=== PATIENT | male | born 1950 | race Caucasian/White ===

== ENCOUNTER 2020-02-19 12:23 | Outpatient (CLI) | payer MEDICARE, SELFPAY ==
--- NOTE | ~2020-02-19 | CT_ITS ---
EXAMINATION: CT abdomen pelvis wo con DATE: 02/19/2020 12:42 INDICATION: 3 weeks of mid abdominal pain, nausea and vomiting TECHNIQUE: Computed tomography (CT) of the abdomen and pelvis was performed without intravenous contr ast. Automated exposure control and iterative reconstruction technique were employed. The dose-length product was 565.17 mGy-cm. COMPARISON: None FINDINGS: Mild atelectasis/scarring at the lingula and right middle lobe. Heart size is normal. Postoperative c hange of prior median sternotomy and likely coronary artery bypass grafting. No pericardial or pleura l effusion. Small calcified gallstone at the neck of the normal-appearing gallbladder with no wall th ickening, dilation or pericholecystic inflammatory change to suggest acute cholecystitis. There is a 4 mm calcification in the region of the head of the pancreas which could represent a stone at the dis alex common bile duct or dystrophic pancreatic callus calcification related to chronic pancreatitis. L iver is normal. No intra or extrahepatic biliary ductal dilation. The spleen, pancreas and bilateral adrenal glands are normal. Bilateral renal cysts the largest on the left measuring 2.2 cm. There also a few small bilateral nonobstructing renal stones, the largest on the left measuring 2 mm the remain jarret 1 mm or smaller. No hydronephrosis in either kidney. There is moderate sigmoid diverticulosis wit hout adjacent inflammatory change to suggest diverticulitis. Small bowel and appendix are normal. Antonio dder is normal. Prostatic calcifications. No free intraperitoneal gas or fluid. No pathologically enl arged abdominal or pelvic lymphadenopathy. Moderate-sized fat-containing right inguinal hernia. Small fat-containing umbilical hernia. IMPRESSION: 1. Cholelithiasis with possible stone in the distal common bile duct but without findings of acute ch olecystitis or intra or extra hepatic biliary ductal dilation. Correlate with liver function tests an d could consider MRCP for further evaluation as clinically indicated. 2. Bilateral nonobstructing nephrolithiasis. 3. Diverticulosis. 4. Small fat-containing umbilical hernia and moderate-sized fat-containing right inguinal hernia. Reviewed, dictated and finalized at location H. ING MASTER IMPRESSION: 1. Cholelithiasis with possible stone in the distal common bile duct but withou t findings of acute cholecystitis or intra or extra hepatic biliary ductal dila tion. Correlate with liver function tests and could consider MRCP for further e valuation as clinically indicated. 2. Bilateral nonobstructing nephrolithiasis. 3. Diverticulosis. 4. Small fat-containing umbilical hernia and moderate-sized fat-containing righ t inguinal hernia.
== END 2020-02-19 12:24 | disposition home or self-care (01) ==
LOC: ANHIMG 12:30
PROVIDERS: PCP Internal Medicine; Visit Provider Nurse Practitioner
DX: K80.80 Other cholelithiasis without obstruction (principal); N28.1 Cyst of kidney, acquired; N20.0 Calculus of kidney; K57.30 Diverticulosis of large intestine without perforation or abscess without bleeding; K40.90 Unilateral inguinal hernia, without obstruction or gangrene, not specified as recurrent; K42.9 Umbilical hernia without obstruction or gangrene; K80.20 Calculus of gallbladder without cholecystitis without obstruction
CPT/HCPCS: 74176

== ENCOUNTER 2020-02-28 08:14 | Emergency (ER) | payer MEDICARE, SELFPAY ==
--- NOTE | ~2020-02-28 | US_ITS ---
US abdomen limited INDICATION: Limited transaminase levels. PROCEDURE: Realtime right upper abdominal ultrasound. COMPARISON: CT dated 02/19/2020 FINDINGS: There is a small echogenic focus at the pancreatic head without definite posterior shadowin g. Distal common duct stone cannot be excluded. Liver echotexture is normal without focal mass or in trahepatic biliary dilatation. There is normal directional flow in the portal vein. There is an echogenic focus in the neck of the gallbladder, suspicious for cholelithiasis. Mild gallb ladder wall thickening measuring 3 mm. Common bile duct measures 11 mm. No sonographic Fernandez's sig n. There is a 2.2 cm right renal cyst. IMPRESSION: 1: Echogenic focus at the pancreatic head without definite shadowing. Consider distal common duct sto ne. Recommend correlation with MRCP examination as clinically indicated. 2: Probable cholelithiasis. There is gallbladder wall thickening with biliary dilatation. Findings s uspicious for cholecystitis. Reviewed, dictated and finalized at location B. R FORENSIC SPECIALIST IMPRESSION: 1: Echogenic focus at the pancreatic head without definite shadowing. Consider distal common duct stone. Recommend correlation with MRCP examination as clinic ally indicated. 2: Probable cholelithiasis. There is gallbladder wall thickening with biliary dilatation. Findings suspicious for cholecystitis.
[2020-02-28 08:30] VITALS: BP 130/68; PULSE 91; RESP 20; TEMP 36.9; O2SAT 95
--- NOTE | 2020-02-28 08:35 | ED.BACK ---
HPI - Back Pain/Injury General Chief Complaint: Urogenital-Male Stated Complaint: back and abd pain Time Seen by Provider: 02/28/20 08:35 Source: patient and family Limitations: no limitations Related Data Home Medications Medication Instructions Recorded Confirmed aspirin 81 mg tablet,delayed 81 mg PO DAILY 01/13/20 release atorvastatin 80 mg tablet 80 mg PO DAILY 01/13/20 docusate sodium 100 mg capsule 100 mg PO BID 01/13/20 ezetimibe 10 mg tablet 10 mg PO DAILY 01/13/20 metoprolol tartrate 25 mg tablet 25 mg PO BID tablet 01/13/20 multivitamin 1 tablet PO DAILY 01/13/20 omega-3 fatty acids 1,000 mg 1,000 mg PO DAILY 01/13/20 capsule Allergies Allergy/AdvReac Type Severity Reaction Status Date / Time No Known Drug Allergies Allergy Mild unknown Verified 02/03/20 09:58 NKFA Allergy Mild unknown Uncoded 02/03/20 09:58 [facility] Past Medical History Medical History (Updated 02/17/20 @ 14:02 by Nita Macias NP) Hyperlipidemia Hypertension Surgical History Surgical History (Updated 01/13/20 @ 09:44 by Clementina Avila CMA) H/O hernia repair H/O neck surgery S/P triple vessel bypass 06/2014 Family History Family History (Updated 01/13/20 @ 09:52 by Clementina Avila CMA) Mother Acute myocardial infarction Cancer Alzheimer disease Father Diabetes mellitus Skin cancer Social History Social History (Updated 02/03/20 @ 09:59 by Bronwyn Bui CMA) Smoking status: Never smoker Second hand tobacco smoke exposure: No Alcohol intake: never Substance use: never Discharge Plan Discharge Prescriptions: No Action metoprolol tartrate 25 mg tablet 25 mg PO BID RF: 0 atorvastatin 80 mg tablet 80 mg PO DAILY RF: 0 docusate sodium 100 mg capsule 100 mg PO BID RF: 0 aspirin [Adult Low Dose Aspirin] 81 mg tablet,delayed release (DR/EC) 81 mg PO DAILY RF: 0 ezetimibe [Zetia] 10 mg tablet 10 mg PO DAILY RF: 0 multivitamin Tablet 1 tablet PO DAILY RF: 0 omega-3 fatty acids [Fish Oil Concentrate] 1,000 mg capsule 1,000 mg PO DAILY RF: 0 fluticasone propionate [Flonase Allergy Relief] 50 mcg/actuation spray,suspension 1 spray intranasal BID Qty: 15.8 RF: 3
--- NOTE | 2020-02-28 08:39 | ECG_ITS ---
Measurements Intervals [place] Rate: 81 P: 70 PA: 151 QRS: 4 QRSD: 126 T: 106 QT: 385 QTc: 447 Interpretive Statements SINUS RHYTHM LEFT BUNDLE BRANCH BLOCK EARLY PRECORDIAL R/S TRANSITION INFERIOR INFARCT, AGE INDETERMINATE BASELINE WANDER- V1 ABNORMAL ECG Electronically Signed On 02-28-2020 9:11:56 [employer]HAUSTER by Prince Andrews D.O.
[2020-02-28] MEDS: ONDANSETRON INJ 4 MG/2 ML VIAL IV PUSH (08:45)
[2020-02-28] MEDS: SODIUM CHLORIDE 0.9% IV 1,000 ML 999 ML IV CONT (08:45)
[2020-02-28] MEDS: HYDROmorphone HCL INJ (*CRX) 2 MG/ML VIAL 0.5 MG IV PUSH ×3 (08:50→12:40)
[2020-02-28 09:08] LABS: Basophils Absolute Auto 0.01 K/mm3 (0.00-0.10); Basophils Percent Auto 0.1 % (0.0-1.0); Hematocrit 42.4 % (37.0-46.0); Hemoglobin 14.1 g/dL (12.4-15.3); Immature Granulocyte Absolute 0.03 K/mm3 (0.00-0.00); Immature Granulocyte Percent A 0.3 % (0.0-0.0); Lymphocytes Absolute Auto 0.12 K/mm3 (1.10-4.50); Lymphocytes Percent Auto 1.4 % (18.0-42.0); Mean Corpuscular HGB Conc 33.3 g/dL (32.0-36.0); Mean Corpuscular Hemoglobin 29.9 pg (27.0-31.0); Mean Corpuscular Volume 89.8 fL (78.0-102.0); Mean Platelet Volume 10.1 fl (8.7-11.0); Monocytes Absolute Auto 0.09 K/mm3 (0.10-0.90); Neutrophils Absolute Auto 8.6 K/mm3 (1.7-7.2); Neutrophils Percent Auto 97.2 % (50.0-70.0); Platelet Count Result 160 K/mm3 (150-420); Red Blood Count 4.72 M/mm3 (4.70-6.10); Red Cell Distribution Width 13.2 % (11.6-14.4); White Blood Count 8.8 K/mm3 (4.8-10.8)
[2020-02-28 09:12] LABS: Add Urine Microscopic? YES; Appearance Urine Clear (Clear); Bilirubin Urine 3+ (Negative); Blood Urine Negative (Negative); Glucose Urine UA Negative (Negative); Ketones Urine 2+ (Negative); Leukocyte Esterase Ur Negative LEU/UL (Negative); Nitrate Urine Positive (Negative); Protein Urine 1+ (Negative); Specific Grav Ur >= 1.030 (1.010-1.020)
[2020-02-28 09:19] LABS: RBC Urine 0-2 /hpf (0-2); WBC Urine 0-3 /hpf (0-3)
[2020-02-28 09:20] LABS: Bacteria Urine 1+ /hpf; Mucus Urine Moderate /lpf
[2020-02-28 09:21] LABS: Color Urine Dark Orange (Yellow)
[2020-02-28 09:22] LABS: INR 1.3; Partial Thromboplastin Time 27.8 SEC (23.90-30.70); Prothrombin Time 14.5 Seconds (9.50-12.10)
[2020-02-28 09:25] LABS: Lactic Acid Reflex 4.8 mmol/L (0.4-2.0)
[2020-02-28 09:29] LABS: Alanine Aminotransferase 534 U/L (16-63); Albumin Level 3.5 g/dL (3.4-5.0); Alkaline Phosphatase 216 U/L (46-116); Anion Gap 15 mmol/L (8-16); Aspartate Amino Transferase 254 U/L (15-37); Bilirubin,Total 6.4 mg/dL (0.00-1.00); Blood Urea Nitrogen 24 mg/dL (7-18); Calcium 9.3 mg/dL (8.5-10.1); Carbon Dioxide 22 mmol/L (21-32); Chloride 103 mmol/L (98-108); Estimated CRCL calculation 48 ml/min; Estimated Glomerular Filt Rate 58; Glucose 153 mg/dL (70-99); Lipase 186 U/L (73-393); Osmolality Calculated 297 mOsm/kg (285-295); Potassium 3.4 mmol/L (3.5-5.1); Sodium 140 mmol/L (136-145); Total Protein 7.6 g/dL (6.4-8.2); Troponin I < 0.02 ng/mL (0.00-0.056)
[2020-02-28 09:30] LABS: Creatine Kinase 47 U/L (39-308); Lactate Dehydrogenase 183 U/L (85-227)
--- NOTE | 2020-02-28 10:09 | PC.NURSE ---
pt to xray for ultrasound per wheelchair.
[2020-02-28 10:39] VITALS: BP 135/85; PULSE 89; RESP 16; TEMP 36.7; O2SAT 99
--- NOTE | 2020-02-28 10:42 | PC.NURSE ---
pt returned from radiology. voices much pain relief after send dose of pain med. resting quietly. family at bedside. awaiting rad report.
--- NOTE | 2020-02-28 11:04 | PC.NURSE ---
[facility] contacted for surgery consult
--- NOTE | 2020-02-28 11:11 | ED.ABDPAIN ---
HPI - Abdominal Pain General Chief Complaint: Urogenital-Male Stated Complaint: back and abd pain Time Seen by Provider: 02/28/20 08:35 Source: patient and family Mode of arrival: wheelchair Limitations: no limitations History of Present Illness HPI narrative: 69-year-old man comes in today complaining of epigastric pain that has been present for last 4 weeks. Patient states that he saw his primary care doctor on the where he had a CT scan. He was told that he had kidney stones. Patient states the last 2 days he has had vomiting and worsening of his abdominal pain. He denies fever, diarrhea, blood in his vomitus, blood in stools, or black stools. He denies prior similar episodes. MD elicited complaint: abdominal pain Pertinent past history: none Onset (ago): week(s) (4) Location: epigastric Pain scale (0-10): 10 Quality: sharp Radiation: back Migration to: no migration Exacerbating factors: other ( Deep breath, lying flat) Relieving factors: nothing Associated symptoms: nausea and vomiting Treatments prior to arrival: other ( Tylenol) Related Data Home Medications Medication Instructions Recorded Confirmed aspirin 81 mg tablet,delayed 81 mg PO DAILY 01/13/20 02/28/20 release atorvastatin 80 mg tablet 80 mg PO DAILY 01/13/20 02/28/20 docusate sodium 100 mg capsule 100 mg PO BID 01/13/20 02/28/20 ezetimibe 10 mg tablet 10 mg PO DAILY 01/13/20 02/28/20 metoprolol tartrate 25 mg tablet 25 mg PO BID tablet 01/13/20 02/28/20 multivitamin 1 tablet PO DAILY 01/13/20 02/28/20 omega-3 fatty acids 1,000 mg 1,000 mg PO DAILY 01/13/20 02/28/20 capsule Allergies Allergy/AdvReac Type Severity Reaction Status Date / Time No Known Drug Allergies Allergy Mild unknown Verified 02/03/20 09:58 NKFA Allergy Mild unknown Uncoded 02/03/20 09:58 Review of Systems Constitutional: Constitutional: Denies chills, Denies fever(s) and Denies weakness Eyes: Eyes: Denies change in vision and Denies photophobia ENT: Denies dysphagia, Denies nasal congestion and Denies sore throat Cardiovascular: Cardiovascular: Denies chest pain and Denies radiating jaw, neck or arm pain Respiratory: Respiratory: Denies cough, Denies dyspnea and Denies wheezing Gastrointestinal: Gastrointestinal: Reports abdominal pain, Denies diarrhea, Reports nausea and Reports vomiting Genitourinary: Genitourinary: Reports hematuria, Denies dysuria and Denies urinary frequency Musculoskeletal: Musculoskeletal: Denies arthralgias and Denies joint swelling Integumentary/Breasts: Skin/Breast: Denies pruritus, Denies erythema and Denies rash Neurologic: Reports vertigo, Reports dizziness and Reports syncope Hematologic/Lymphatic: Hematologic/Lymphatic: Denies easy bleeding and Denies easy bruising Allergic/Immunologic: Allergic/Immunologic: Denies lip swelling, Denies throat swelling and Denies tongue swelling PMFSH Past Medical History Medical History (Updated 02/28/20 @ 12:08 by Pratik Grijalva MD) CAD (coronary artery disease) Hyperlipidemia Hypertension Surgical History Surgical History H/O hernia repair H/O neck surgery S/P triple vessel bypass 06/2014 Family History Family History (Updated 01/13/20 @ 09:52 by Clementina Avila [facility]) Mother Acute myocardial infarction Cancer Alzheimer disease Father Diabetes mellitus Skin cancer Social History Social History Smoking status: Never smoker Second hand tobacco smoke exposure: No Alcohol intake: never Substance use: never Exam Const: General: alert; No diaphoretic Nutritional Appearance: well nourished Orientation/consciousness: patient oriented x3 Other: moderate to severe acute distress HENMT: Head: normal to inspection Ears: external ears normal, TM's normal bilaterally and EAC's normal General nose exam: Normal nares present Face and sinus: norm
[2020-02-28 12:06] LABS: Reflex Lactic Acid Yes or No Add Lactic
[2020-02-28 12:46] VITALS: BP 121/75; PULSE 93; RESP 18; O2SAT 94
== END 2020-02-28 13:15 | disposition short-term general hospital (02) ==
PROVIDERS: Emergency Provider Emergency Medicine; PCP Internal Medicine
DX: K81.0 Acute cholecystitis (principal); I25.10 Atherosclerotic heart disease of native coronary artery without angina pectoris; E78.5 Hyperlipidemia, unspecified; I10 Essential (primary) hypertension
CPT/HCPCS: 36415; 76705; 80053; 81001; 82550; 83605; 83615; 83690; 84484; 85025; 85610; 85730; 87086; 87088; 93005; 96361; 96365; 96375; 96376; 99285; J1170; J2405; J2543; J7030

== ENCOUNTER 2020-02-28 15:39 | Inpatient (IN) | payer MEDICARE, SELFPAY ==
--- NOTE | ~2020-02-28 | XR_ITS ---
EXAMINATION: XR cholangiogram surg 1st inj DATE: 03/01/2020 15:44 INDICATION: Cholelithiasis. TECHNIQUE: 145 fluoroscopic images of the right upper quadrant were obtained during intraoperative ch olangiography performed by the surgeon. I was not present in the operating room. Fluoroscopy exposure time was 23 seconds. COMPARISON: CT abdomen and pelvis 02/19/2020 FINDINGS: There is a catheter in the cystic duct. Contrast opacifies the biliary tree and duodenum. T here is no choledocholithiasis. IMPRESSION: 1. No choledocholithiasis. Reviewed, dictated and finalized at location A. [facility] HEALTH TECHNICIAN IMPRESSION: 1. No choledocholithiasis.
--- NOTE | 2020-02-28 13:48 | ADMGEN ---
This patient, Willie Hong, was A DIRECT admit FROM [facility] to [facility]3 MED/SURG OVERFLOW PT. Patient/family oriented to hospital policies and general routines including ID bracelet, bed and alarms, visiting hours, pain management, procedures, bathroom and other care routines, personal items, smoking policy, room service/diet, and visiting hours. Information on how to activate the Rapid Response Team has been discussed. Patient/Family are encouraged to report perceived risks to care and to ask questions if they do not understand what they are told or what they should do.
[2020-02-28 14:00] VITALS: BP 137/83; PULSE 89; RESP 18; TEMP 36.6; O2SAT 93
[2020-02-28 14:15] VITALS: BMI 28.2
--- NOTE | 2020-02-28 14:30 | PC.NURSE ---
NOTIFIED CHRISTOPHER BRUSH OF PT'S ARRIVAL TO ORTHOPEDIC NURSE 3 MED SURG OVERFLOW DIRECT ADMITTED FROM [facility]. UPDATED ON PAIN LEVEL AND VS.
--- NOTE | 2020-02-28 14:55 | PC.NURSE ---
NOTIFIED DR. AMBROCIO'S OFFICE OF NEW DIRECT ADMIT ARRIVAL AND NEEDED CONSULT.
--- NOTE | 2020-02-28 15:45 | PC.NURSE ---
DR. CLEVELAND HERE TO SEE PT. CONDITION UPDATE GIVEN.
--- NOTE | 2020-02-28 16:00 | PM.IMHP ---
H&P: HPI History of Present Illness Date/Time: 02/28/20 16:00 Chief complaint: Cholecystitis with biliary stones and jaundice. Narrative: Willie Hong is a pleasant 69-year-old male with coronary artery disease, hypertension, and hyperlipidemia who is being directly admitted to the hospitalist service from the emergency department at [facility] for further treatment of acute cholecystitis with jaundice secondary to biliary stones. For nearly 4 weeks he has had intermittent pain in the upper abdomen radiating to the back and more so the right scapula. The pain is described as severe and squeezing and seems to be colicky in nature. Associated symptoms include nausea and vomiting and some chills. He has been taking Motrin almost every 4 hours when the pain is bad and it seems to help somewhat. He sees no pattern as to when the discomfort occurs and denies that it is specifically related to food. He was seen by his primary care provider and a CT of the abdomen and pelvis was performed on 02/19/2020 and he was told he had kidney stones and he was referred to a urologist although the appointment is not until March 16. Unfortunately he continues to have pain, which has been much worse over the last several days and thus he came in for evaluation. On further review the CT scan taken on February 18 did indeed show findings of cholelithiasis with possible stone in the distal common bile duct but no mention was made to the patient regarding these findings. Given his ongoing pain and the development of jaundice, he most certainly has obstructing biliary stones. He has little pain at the time my evaluation reports feeling somewhat better. He denies fever, chills, and sweats. His bowel movements have been as per usual and are unremarkable. He has not had any further nausea or vomiting. Review of Systems Review of Systems: Narrative: Twelve systems are reviewed with pertinent positives and negatives as per HPI. No fever. He frequently suffers from night sweats and that has been going on for a decade at least. Weight has remained stable. No chest pain or shortness of breath however he has been splinting and breathing more as it seems to make his pain worse. He denies cough and exposure to those positive for COVID-19. He has noticed his urine is darker than usual, almost tea-colored. No hematuria. He denies dysuria. No GERD her indigestion symptoms. Except as documented, all other systems were reviewed and are negative. [facility] Past Medical History Medical History (Updated 02/28/20 @ 23:01 by Luciana Capps PA-C) Coronary artery disease Hyperlipidemia Hypertension Kidney stones Surgical History Surgical History (Updated 02/28/20 @ 22:57 by Luciana Capps PA-C) History of coronary artery bypass graft x 3 (~06/2014) History of left inguinal hernia repair Status post excision of lipoma From the side of the neck. Family History Family History Mother Acute myocardial infarction Cancer Alzheimer disease Father Diabetes mellitus Skin cancer Social History Social History (Updated 02/28/20 @ 22:58 by Luciana Capps PA-C) Social History: Surrogate decision maker: Leeann Hong, . Code status: Full code. Smoking status: Never smoker Second hand tobacco smoke exposure: No Alcohol intake: never Substance use: never Substance use type: does not use Additional living arrangements comments: Resides with family members in [place]. Gender identity (if verbalized by the patient): Male Spiritual care concerns: No Meds Home Medications and Allergies Home Medications Medication Instructions Recorded Confirmed Type aspirin 81 mg tablet,delayed 81 mg PO DAILY 01/13/20 02/28/20 History release atorvastatin 80 mg tablet 80 mg PO DAILY 01/13/20 02/28/20 History docusate sodium 100 mg capsule 100 mg PO BID
--- NOTE | 2020-02-28 16:30 | PC.NURSE ---
DR. AMBROCIO HERE TO SEE PT IN CONSULTATION. CONDITION UPDATE GIVEN. PLAN ERCP IN AM.
--- NOTE | 2020-02-28 16:37 | PM.CNGS ---
Assessment and Plan Assessment and plan (1) Acute cholecystitis due to biliary calculus: Code(s): K80.00 - Calculus of gallbladder with acute cholecystitis without obstruction Status: Acute Assessment and Plan: I have reviewed the imaging and discussed the findings with the patient. He appears to have signs of a common bile duct obstruction given his findings on the CT and elevated bilirubin level. Will await evaluation by Gastroenterology to determine if ERCP will be recommended. I discussed that eventually he will require laparoscopic cholecystectomy, possible open. This will likely best be performed during this hospitalization to prevent recurrent episodes. Will follow along closely with patient for any acute changes. (2) Elevated liver enzymes: Code(s): R74.8 - Abnormal levels of other serum enzymes Status: Acute (3) CAD (coronary artery disease): Qualifiers: Coronary Disease-Associated Artery/Lesion type: [place] artery [place] vs. transplanted heart: [place] heart Associated angina: without angina Qualified Code(s): I25.10 - Atherosclerotic heart disease of [place] coronary artery without angina pectoris Code(s): I25.10 - Atherosclerotic heart disease of [place] coronary artery without angina pectoris Status: Acute Additional Plan Thank you very much for allowing us to aid in the care of this patient. History of Present Illness Consult details Consult date: 02/28/20 Reason for consult: gallstones Narrative: This is a 69-year-old man who presented to [facility] on 02/27 with complaints of upper abdominal pain for the past 4 weeks. He has been experiencing intermittent right upper quadrant abdominal pain but has not identified any particular foods that have caused this. Over the past 4 days his pain has been more constant and radiating into his back. He has also noted very dark colored urine. He denies any change in bowel habits. He denies any history of liver or pancreatic problems and denies any heavy alcohol use. He had a CT of his abdomen and pelvis done on 02/18. He states that he was told that this was related to kidney stones and was instructed to hydrate more. He did have a kidney stone about 30 years ago but this pain feels different. Review of Systems Review of Systems: All systems reviewed & are unremarkable except as noted in HPI and below Constitutional: Constitutional: Denies chills and Denies fever(s) Eyes: Eyes: Denies change in vision ENT: Denies hearing loss, Denies neck pain and Denies sore throat Cardiovascular: Cardiovascular: Denies chest pain and Denies dyspnea Respiratory: Respiratory: Denies cough, Denies dyspnea and Denies wheezing Gastrointestinal: Gastrointestinal: Reports as per HPI Genitourinary: Genitourinary: Denies hematuria and Denies dysuria Musculoskeletal: Musculoskeletal: Denies arthralgias, Denies joint swelling and Denies neck pain Allergic/Immunologic: Allergic/Immunologic: Denies wheezing [facility] Past Medical History Medical History CAD (coronary artery disease) Hyperlipidemia Hypertension Surgical History Surgical History H/O hernia repair H/O neck surgery S/P triple vessel bypass 06/2014 Family History Family History Mother Acute myocardial infarction Cancer Alzheimer disease Father Diabetes mellitus Skin cancer Social History Social History Smoking status: Never smoker Second hand tobacco smoke exposure: No Alcohol intake: never Substance use: never Meds Home Medications and Allergies Home Medications Medication Instructions Recorded Confirmed Type aspirin 81 mg tablet,delayed 81 mg PO DAILY 01/13/20 02/28/20 History release nancy
--- NOTE | 2020-02-28 16:40 | WPDGICN ---
Assessment and Plan Assessment and plan (1) Acute cholecystitis due to biliary calculus: Code(s): K80.00 - Calculus of gallbladder with acute cholecystitis without obstruction Status: Acute Assessment and Plan: Patient appears to have jaundice on the basis of gallstones. Symptoms appear most consistent with. Biliary colic. I cannot exclude cholecystitis. Agree with broad-spectrum antibiotic coverage follow LFTs. ERCP will be planned in the morning. Surgery consult will be obtained for cholecystectomy as well. (2) Jaundice: Code(s): R17 - Unspecified jaundice Status: Acute (3) Abdominal pain: Qualifiers: Abdominal location: generalized Qualified Code(s): R10.84 - Generalized abdominal pain Code(s): R10.9 - Unspecified abdominal pain Status: Acute GI Consult Note Consult date/time: 02/28/20 16:40 HPI: Willie Hong is a 69 year old male seen in evaluation at the request of the hospitalist service. Patient reports a 4 week history of back pain associated with nausea vomiting. Over last 3 days this pain is worsened associations with some nausea vomiting. He presented to [facility] today was found to have elevated LFTs . a CT scan Was performed which raise the question of gallstones and possible biliary obstruction. He was found to have significant jaundice with elevated total bilirubin as well as elevated LFTs. Review of Systems Review of Systems: All systems reviewed & are unremarkable except as noted in HPI and below PMFSH Past Medical History Medical History (Updated 02/28/20 @ 16:42 by Josse Hooks MD) CAD (coronary artery disease) Hyperlipidemia Hypertension Surgical History Surgical History H/O hernia repair H/O neck surgery S/P triple vessel bypass 06/2014 Family History Family History (Updated 01/13/20 @ 09:52 by Clementina Avila CMA) Mother Acute myocardial infarction Cancer Alzheimer disease Father Diabetes mellitus Skin cancer Social History Social History Smoking status: Never smoker Second hand tobacco smoke exposure: No Alcohol intake: never Substance use: never Meds Home Medications and Allergies Home Medications Medication Instructions Recorded Confirmed Type aspirin 81 mg tablet,delayed 81 mg PO DAILY 01/13/20 02/28/20 History release atorvastatin 80 mg tablet 80 mg PO DAILY 01/13/20 02/28/20 History docusate sodium 100 mg capsule 100 mg PO BID 01/13/20 02/28/20 History ezetimibe 10 mg tablet 10 mg PO DAILY 01/13/20 02/28/20 History metoprolol tartrate 25 mg tablet 25 mg PO BID tablet 01/13/20 02/28/20 History multivitamin 1 tablet PO DAILY 01/13/20 02/28/20 History omega-3 fatty acids 1,000 mg 1,000 mg PO DAILY 01/13/20 02/28/20 History capsule fluticasone propionate 50 1 spray INTRANASAL BID #15.8 ml 02/03/20 02/28/20 Rx mcg/actuation nasal spray,suspension Allergies Allergy/AdvReac Type Severity Reaction Status Date / Time No Known Drug Allergies Allergy Mild unknown Verified 02/28/20 15:38 NKFA Allergy Mild unknown Uncoded 02/28/20 15:38 Vital Signs Vital Signs - 24 hr 02/28/20 14:00 Temperature 97.8 F Pulse Rate 89 Respiratory Rate 18 Blood Pressure 137/83 Pulse Oximetry 93 Exam Narrative: Exam Narrative: Physical exam reveals patient to be comfortable at rest. He states he had pain earlier this morning. HEENT exam reveals mild icterus. Lungs are clear to auscultation and percussion. Heart is without murmur or extra sounds. Abdominal exam bowel sounds are present soft currently with no localized tenderness or masses. Digital rectal exam is deferred.
[2020-02-28 18:00] VITALS: BP 117/73; PULSE 77; RESP 16; TEMP 36.6; O2SAT 96
--- NOTE | 2020-02-28 18:15 | PC.NURSE ---
CHRISTOPHER SOUZA PA HERE TO SEE PT. CONDITION UPDATE GIVEN.
[2020-02-28 19:55] VITALS: BP 117/65; PULSE 68; RESP 16; TEMP 36.6; O2SAT 93
[2020-02-28 20:28] LABS: Bilirubin Direct 2.1 mg/dL (0-0.3); Bilirubin Indirect 1.3 mg/dL (0-1.1); Bilirubin,Total 4.9 mg/dL (0.2-1.3)
[2020-02-28] MEDS: SODIUM CHLORIDE 0.9% IV 1,000 ML 100 ML IV CONT (23:19)
[2020-02-29] VITALS (11 sets, daily range): BP systolic 114–127; BP diastolic 69–81; PULSE 60–84; RESP 13–20; TEMP 36.2–36.6; O2SAT 91–97
[2020-02-29 00:56] LABS: Alanine Aminotransferase 410 U/L (4-50); Albumin Level 3.6 g/dL (3.5-5.1); Alkaline Phosphatase 186 U/L (38-126); Anion Gap 4 mmol/L (8-16); Aspartate Amino Transferase 207 U/L (17-59); Bilirubin,Total 4.3 mg/dL (0.2-1.3); Blood Urea Nitrogen 21 mg/dL (9-20); Calcium 9.2 mg/dL (8.4-10.2); Carbon Dioxide 29 mmol/L (22-30); Chloride 105 mmol/L (98-107); Estimated CRCL calculation 64 ml/min; Estimated Glomerular Filt Rate > 60; Glucose 105 mg/dL (75-110); Magnesium 2.4 mg/dL (1.6-2.3); Potassium 3.8 mmol/L (3.4-5.0); Sodium 138 mmol/L (137-145)
[2020-02-29 03:06] LABS: HAV RESULT Negative (Negative); Hepatitis B Core IgM Result Negative (Negative); Hepatitis B Surface Antigen Negative (Negative); Hepatitis C Virus Antibody Negative (Negative)
[2020-02-29 05:19] LABS: Basophils Percent Auto 0.3 % (0.2-1.2); Eosinophils Absolute Auto 0.1 K/mm3 (0-0.3); Eosinophils Percent Auto 1.1 % (0-4.4); Hematocrit 35.7 % (42.0-52.0); Hemoglobin 11.7 g/dL (14.0-18.0); Immature Granulocyte Absolute 0.05 K/mm3 (0.00-0.031); Immature Granulocyte Percent A 0.7 % (0-0.5); Lymphocytes Absolute Auto 0.68 K/mm3 (0.9-3.2); Lymphocytes Percent Auto 9.5 % (18.3-44.2); Mean Corpuscular HGB Conc 32.8 g/dl (32-36); Mean Corpuscular Volume 88.4 fl (80-100); Mean Platelet Volume 10.6 fl (7.4-10.4); Monocytes Absolute Auto 0.5 K/mm3 (0.1-0.6); Monocytes Percent Auto 6.4 % (2.6-8.5); Neutrophils Absolute Auto 5.9 K/mm3 (1.3-6.7); Platelet Count Result 122 k/mm3 (150-375); Red Blood Count 4.04 M/mm3 (4.6-6.20); Red Cell Distribution Width 13.4 % (11.5-14.5); White Blood Count 7.1 K/mm3 (4.5-10.0)
[2020-02-29 05:28] LABS: Alanine Aminotransferase 340 U/L (4-50); Albumin Level 3.1 g/dL (3.5-5.1); Alkaline Phosphatase 175 U/L (38-126); Anion Gap 3 mmol/L (8-16); Aspartate Amino Transferase 174 U/L (17-59); Bilirubin,Total 3.1 mg/dL (0.2-1.3); Blood Urea Nitrogen 20 mg/dL (9-20); Calcium 8.7 mg/dL (8.4-10.2); Carbon Dioxide 28 mmol/L (22-30); Chloride 107 mmol/L (98-107); Estimated CRCL calculation 64 ml/min; Estimated Glomerular Filt Rate > 60; Glucose 98 mg/dL (75-110); Potassium 3.7 mmol/L (3.4-5.0); Sodium 138 mmol/L (137-145)
[2020-02-29 05:29] LABS: INR 1.2; Prothrombin Time 16.2 Seconds (11.1-14.7)
[2020-02-29 05:30] LABS: Partial Thromboplastin Time 37.2 SECONDS (22.3-36.8)
[2020-02-29] MEDS: FLUTICASONE PROPIONATE 0.05% NA SPR 16 GM BTL (*BKC) 1 SPRAY NASAL ×2 (07:43→17:42)
[2020-02-29] MEDS: LACTATED RINGERS 1,000 ML 150 ML IV CONT (09:41)
--- NOTE | 2020-02-29 09:49 | WPDANESEPPF ---
Anes - Initial Pre Proc Eval Procedure: Operation Date: 02/29/20 10:30 Proposed Procedures p Endoscopic Retro Cholangiopancreatogram - Josse Hooks MD Date/Time: 02/29/20 09:49 Surgeon: Lore Baez PA-C Pre Op Diagnosis: Cholecystitis with biliary stones and jaundice. Patient Data Age: 69 Gender: M Height: 5 ft 7 in Weight: 81.7 kg Last Vital Signs Temp 97.7 F 02/29/20 09:40 Pulse 66 02/29/20 09:40 Resp 18 02/29/20 09:40 BP 118/69 02/29/20 09:40 Pulse Ox 95 02/29/20 09:40 Allergies Allergy/AdvReac Type Severity Reaction Status Date / Time No Known Drug Allergies Allergy Mild unknown Verified 02/28/20 15:38 NKFA Allergy Mild unknown Uncoded 02/28/20 15:38 Home Medications Medication Instructions Recorded Confirmed Type aspirin 81 mg tablet,delayed 81 mg PO DAILY 01/13/20 02/28/20 History release atorvastatin 80 mg tablet 80 mg PO DAILY 01/13/20 02/28/20 History docusate sodium 100 mg capsule 100 mg PO BID 01/13/20 02/28/20 History ezetimibe 10 mg tablet 10 mg PO DAILY 01/13/20 02/28/20 History metoprolol tartrate 25 mg tablet 25 mg PO BID tablet 01/13/20 02/28/20 History multivitamin 1 tablet PO DAILY 01/13/20 02/28/20 History omega-3 fatty acids 1,000 mg 1,000 mg PO DAILY 01/13/20 02/28/20 History capsule fluticasone propionate 50 1 spray INTRANASAL BID #15.8 ml 02/03/20 02/28/20 Rx mcg/actuation nasal spray,suspension Laboratory Tests 02/28/20 02/29/20 02/29/20 20:01 00:22 00:29 WBC RBC Hgb Hct MCV MCH MCHC RDW Plt Count MPV Immature Gran % (Auto) Neut % (Auto) Lymph % (Auto) [place] % (Auto) Eos % (Auto) Baso % (Auto) Lymph # (Auto) [place] # (Auto) Eos # (Auto) Baso # (Auto) Abs Immat Gran (auto) Absolute Neuts (auto) Absolute Nucleated RBC Nucleated RBC % % Immature Plt Fraction PT INR APTT Sodium 138 mmol/L mmol/L (137-145) Potassium 3.8 mmol/L mmol/L (3.4-5.0) Chloride 105 mmol/L mmol/L (98-107) Carbon Dioxide 29 mmol/L mmol/L (22-30) Anion Gap 4 mmol/L L mmol/L (8-16) BUN 21 mg/dL H mg/dL (9-20) Creatinine 0.90 mg/dL mg/dL (0.7-1.3) Estim Creat Clear Calc 64 ml/min ml/min Estimated GFR > 60 (59 - ) Glucose 105 mg/dL mg/dL (75-110) Calcium 9.2 mg/dL mg/dL (8.4-10.2) Magnesium 2.4 mg/dL H mg/dL (1.6-2.3) Total Bilirubin 4.9 mg/dL H mg/dL 4.3 mg/dL H mg/dL (0.2-1.3) (0.2-1.3) Direct Bilirubin 2.1 mg/dL H mg/dL (0-0.3) Indirect Bilirubin 1.3 mg/dL H mg/dL (0-1.1) AST 207 U/L H U/L (17-59) ALT 410 U/L H U/L (4-50) Alkaline Phosphatase 186 U/L H U/L (38-126) Total Protein 7.0 g/dL g/dL (6.3-8.2) Albumin 3.6 g/dL g/dL (3.5-5.1) Hepatitis A IgM Ab Negative (Negative) Hep Bs Antigen Negative (Negative) Hep B Core IgM Ab Negative (Negative) Hepatitis C Ab Screen Negative (Negative) 02/29/20 02/29/20 02/29/20 04:58 04:58 04:58 WBC 7.1 K/mm3 K/mm3 (4.5-10.0) RBC 4.04 M/mm3 L M/mm3 (4.6-6.20) Hgb 11.7 g/dL L g/dL (14.0-18.0) Hct 35.7 % L % (42.0-52.0) MCV 88.4 fl fl (80-100) MCH 29.0 pg pg (26-34) MCHC 32.8 g/dl g/dl (32-36) RDW 13.4 % % (11.5-14.5) Plt Count 122 k/mm3 L k/mm3 (150-375) MPV 10.6 fl H fl (7.4-10.4) Immature Gran % (Auto) 0.7 % H % (0-0.5) Neut % (Auto) 82.0 % H % (45.5-73.1)
--- NOTE | 2020-02-29 10:58 | SUR.OPER ---
ERCP ATTEMPTED UNABLE TO PASS DUODENUM, EGD DONE
[2020-02-29] MEDS: PANTOPRAZOLE SODIUM IV 40 MG VIAL IV PUSH (12:20)
[2020-02-29] MEDS: SODIUM CHLORIDE 0.9% IV 1,000 ML 100 ML IV CONT ×2 (12:26→23:29)
--- NOTE | 2020-02-29 14:22 | PM.IMPN ---
Progress Note: A&P Assessment and Plan (1) Acute cholecystitis due to biliary calculus: Code(s): K80.00 - Calculus of gallbladder with acute cholecystitis without obstruction Status: Inactive Assessment and Plan: The pt presented with epigastric pain, nausea, and vomiting for 4 weeks in the setting of cholelithiasis. Abdominal ultrasound performed 02/28/20 showed echogenic focus at the pancreatic head suspicious for distal common bile duct stone and gallbladder wall thickening suspicious for cholecystitis. LFTs and bilirubin are elevated but improving. Jaundice is improving. WBC is normal and he is afebrile. He is on IV zosyn empirically (initiated 02/28) given concern for acute cholecystitis which will be continued. Blood cultures were obtained after the initiation of antibiotics and are pending. Dr. Hooks with GI and Dr. Moura with general surgery are following. Appreciate GI and general surgery input. Cholecystectomy is anticipated. ERCP was unsuccessful today. Continue analgesics and antiemetics as needed. Continue IV fluids. (2) Jaundice: Code(s): R17 - Unspecified jaundice Status: Acute Assessment and Plan: Secondary to above. Bilirubin and LFTs are improving. Cholecystectomy is anticipated as ERCP was unsuccessful today. (3) Hypertension: Code(s): I10 - Essential (primary) hypertension Status: Chronic Assessment and Plan: Blood pressures are at target. Continue metoprolol. Continue to monitor. (4) Hyperlipidemia: Code(s): E78.5 - Hyperlipidemia, unspecified Status: Chronic Assessment and Plan: LFTs are elevated, likely due to suspected biliary obstruction. Hold atorvastatin for now and resume when clinically appropriate. (5) Elevated lactic acid level: Code(s): R79.89 - Other specified abnormal findings of blood chemistry Status: Resolved Assessment and Plan: Resolved. Lactic acid was 4.8 at admission to OSH and normalized to 2.0 after IV fluids. (6) Anemia: Code(s): D64.9 - Anemia, unspecified Status: Acute Assessment and Plan: Hb was normal at 14.1 at admission and decreased to 11.7. There was likely an element of hemoconcentration as he did appear dehydrated. He is receiving IV fluids. Will check iron studies, vitamin B12, and folate. Continue to monitor. Transfuse as needed to maintain Hb >7. (7) CAD (coronary artery disease): Qualifiers: Associated angina: without angina Coronary Disease-Associated Artery/Lesion type: [place] artery [place] vs. transplanted heart: [place] heart Qualified Code(s): I25.10 - Atherosclerotic heart disease of [place] coronary artery without angina pectoris Code(s): I25.10 - Atherosclerotic heart disease of [place] coronary artery without angina pectoris Status: Chronic Assessment and Plan: Chronic. He has no complaints of angina. Continue ASA EC 81mg and metoprolol. Subjective Date/time seen: 02/29/20 14:22 Mr. Hong is a 69 y.o. male with PMH significant for CAD s/p CABG, HLD, HTN, and nephrolithiasis who is seen in follow-up for likely choledocholithiasis and cholecystitis. He is seen following ERCP which he notes was unsuccessful. He is feeling much better overall. His pain is very minimal and he is tolerating clear liquids without any nausea or vomiting. He notes mild bloating following ERCP. He has not had any bowel movements today. He is not having any chest pain or dyspnea. He notes chills Friday night but denies subjective fever or chills today. He denies calf pain and leg swelling. Review of Systems Review of Systems: All systems reviewed & are unremarkable except as noted in HPI and below Exam Narrative: Exam Narrative: General: Very pleasant, well-developed, and well-nourished 69 y.o. male lying semi-recumbent in bed in no acute distress. HEENT: Normocephalic and atraumatic. Sclerae are slig
--- NOTE | 2020-02-29 16:23 | PM.PNGS ---
Progress Note: A&P Assessment and Plan (1) Acute cholecystitis due to biliary calculus: Code(s): K80.00 - Calculus of gallbladder with acute cholecystitis without obstruction Status: Inactive Assessment and Plan: ERCP attempted today but unsuccessful. LFTs continue to trend down and patient is clinically improving. After talking with Dr. Moura, I discussed treatment options with the patient at this point. We will plan to still proceed with the laparoscopic cholecystectomy tomorrow by Dr. Moura and do an intraoperative cholangiogram. If there are any filling defects noted intraoperatively, then the patient would require transfer to a tertiary care facility. The patient is agreeable to proceeding, knowing he may ultimately require transfer if there is concern for a CBD stone during surgery. Will allow clear liquids today and make NPO after midnight. (2) Elevated liver enzymes: Code(s): R74.8 - Abnormal levels of other serum enzymes Status: Acute (3) CAD (coronary artery disease): Qualifiers: Coronary Disease-Associated Artery/Lesion type: [place] artery [place] vs. transplanted heart: [place] heart Associated angina: without angina Qualified Code(s): I25.10 - Atherosclerotic heart disease of [place] coronary artery without angina pectoris Code(s): I25.10 - Atherosclerotic heart disease of [place] coronary artery without angina pectoris Status: Chronic Additional Plan Discussed the patient's plan of care with Dr. Moura. Subjective Subjective Date/Time Seen: 02/29/20 14:23 Patient reports: no new complaints, feels better and tolerating liquids well Interval history: Patient seen following ERCP in the chest pain center. He reports feeling well today with minimal epigastric abdominal pain that does not seem aggravated by the clear liquids. Denies nausea or vomiting. No new complaints. Review of Systems Review of Systems: All systems reviewed & are unremarkable except as noted in HPI and below Constitutional: Constitutional: Denies chills and Denies fever(s) Gastrointestinal: Gastrointestinal: Reports as per HPI and Reports no additional gastrointestinal complaints Exam Const: General: cooperative, comfortable and no acute distress Orientation/consciousness: patient oriented x3 Limitations: no limitations Resp: Effort & Inspection: normal respiratory effort and able to speak in complete sentences Auscultation: clear to auscultation bilaterally Cardio: Rate: regular rate Rhythm: regular rhythm GI: Inspection: normal to inspection and non-distended GI Palp: Yes Soft to palpation, Yes Tenderness to palpation present (GI) (mild diffuse tenderness, mostly tender in epigastric area and RUQ), No Guarding due to palpation present (GI) and No Rebound tenderness present Auscultation: normal bowel sounds Skin: General skin exam: normal color Neuro: General: moves all extremities and no focal motor deficits Extrem: General: normal to inspection and capillary refill normal Psych: Mental Status: mental status grossly normal Insight: Good insight present (Psych) Judgement: Good judgement present (Psych) Objective Data Vital Signs Vital Signs: Vital Signs - 24 hr 02/28/20 18:00 02/28/20 19:55 02/29/20 05:02 Temperature 97.8 F 98 F 97.8 F Pulse Rate 77 68 84 Respiratory Rate 16 16 16 Blood Pressure 117/73 117/65 119/69 Pulse Oximetry 96 93 94 02/29/20 08:00 02/29/20 09:40 02/29/20 11:08 Temperature 97.9 F 97.7 F 97.2 F L Pulse Rate 70 66 70 Respiratory Rate 16 18 20 Blood Pressure 114/73 118/69 115/74 Pulse Oximetry 95 95 96 02/29/20 11:18 02/29/20 11:28 02/29/20 11:38 Temperature Pulse Rate 66 63 61 Respiratory Rate 15 16 16 Blood Pressure 118/74 124/79 122/81 Pulse Oximetry 95 94 91 02/29/20 11:48 02/29/20 11:58 Temperature Pulse Rate 62 60 Respiratory Rate 14 13 Blood Pressure 127/77 121/78 Pulse Oximetry 93 94 Intake/Output Intake/
[2020-02-29] MEDS: DOCUSATE SODIUM 100 MG CAPSULE PO (17:42)
[2020-02-29] MEDS: METOPROLOL TARTRATE 25 MG TABLET PO (17:43)
[2020-03-01] VITALS (16 sets, daily range): BP systolic 121–163; BP diastolic 67–83; PULSE 47–59; RESP 14–17; TEMP 36.4–37.1; O2SAT 93–100
[2020-03-01 05:34] LABS: Basophils Percent Auto 0.1 % (0.2-1.2); Hematocrit 34.8 % (42.0-52.0); Hemoglobin 11.4 g/dL (14.0-18.0); Immature Granulocyte Absolute 0.14 K/mm3 (0.00-0.031); Immature Granulocyte Percent A 1.7 % (0-0.5); Immature Platelet Fraction Pct 5.2 % (0.9-11.2); Lymphocytes Absolute Auto 0.72 K/mm3 (0.9-3.2); Lymphocytes Percent Auto 8.7 % (18.3-44.2); Mean Corpuscular HGB Conc 32.8 g/dl (32-36); Mean Corpuscular Hemoglobin 28.7 pg (26-34); Mean Corpuscular Volume 87.7 fl (80-100); Mean Platelet Volume 10.7 fl (7.4-10.4); Monocytes Absolute Auto 0.5 K/mm3 (0.1-0.6); Monocytes Percent Auto 6.4 % (2.6-8.5); Neutrophils Absolute Auto 6.9 K/mm3 (1.3-6.7); Neutrophils Percent Auto 83.1 % (45.5-73.1); Platelet Count Result 137 k/mm3 (150-375); Red Blood Count 3.97 M/mm3 (4.6-6.20); Red Cell Distribution Width 13.2 % (11.5-14.5); White Blood Count 8.3 K/mm3 (4.5-10.0)
[2020-03-01 05:50] LABS: Alanine Aminotransferase 237 U/L (4-50); Albumin Level 3.1 g/dL (3.5-5.1); Alkaline Phosphatase 168 U/L (38-126); Anion Gap 4 mmol/L (8-16); Aspartate Amino Transferase 90 U/L (17-59); Bilirubin,Total 1.2 mg/dL (0.2-1.3); Blood Urea Nitrogen 14 mg/dL (9-20); Calcium 8.9 mg/dL (8.4-10.2); Carbon Dioxide 27 mmol/L (22-30); Chloride 109 mmol/L (98-107); Estimated CRCL calculation 72 ml/min; Estimated Glomerular Filt Rate > 60; Glucose 114 mg/dL (75-110); Potassium 3.8 mmol/L (3.4-5.0); Sodium 140 mmol/L (137-145)
[2020-03-01 06:21] LABS: Iron 70 ug/dL (49-181)
[2020-03-01 06:31] LABS: Percent Iron Saturation 25 % (20-50)
[2020-03-01 06:52] LABS: Folic Acid 17.1 ng/mL (2.76->20)
[2020-03-01] MEDS: DOCUSATE SODIUM 100 MG CAPSULE PO ×2 (08:55→17:42)
[2020-03-01] MEDS: FLUTICASONE PROPIONATE 0.05% NA SPR 16 GM BTL (*BKC) 1 SPRAY NASAL ×2 (08:59→17:42)
[2020-03-01] MEDS: PANTOPRAZOLE SODIUM IV 40 MG VIAL IV PUSH (08:59)
[2020-03-01] MEDS: ASPIRIN 81 MG ENTERIC TABLET PO (10:00)
[2020-03-01] MEDS: SODIUM CHLORIDE 0.9% IV 1,000 ML 100 ML IV CONT ×2 (10:41)
--- NOTE | 2020-03-01 11:10 | P.PNAN_ITS ---
Anes - Prog Note Post-Op Date/Time: 03/01/20 11:10 Cardiovascular status: normal Respiratory status: normal Airway patency: baseline Mental status: baseline Post-Op hydration status: normal Vital Signs: Last Vital Signs Temp 37.1 C 03/01/20 05:45 Pulse 49 L 03/01/20 08:58 Resp 16 03/01/20 08:53 BP 132/83 03/01/20 08:53 Pulse Ox 96 03/01/20 08:53 Pain Score (VAS): 0 I/O: Intake & Output 02/29/20 03/01/20 03/01/20 23:59 07:59 15:59 Intake Total 8114 825 7154 Balance 3494 971 6413 Laboratory Tests 03/01/20 05:06 03/01/20 05:06 03/01/20 03/01/20 03/01/20 05:06 05:06 05:06 WBC 8.3 RBC 3.97 L Hgb 11.4 L Hct 34.8 L MCV 87.7 MCH 28.7 MCHC 32.8 RDW 13.2 Plt Count 137 L MPV 10.7 H Immature Gran % (Auto) 1.7 H Neut % (Auto) 83.1 H Lymph % (Auto) 8.7 L [place] % (Auto) 6.4 Eos % (Auto) 0.0 Baso % (Auto) 0.1 L Lymph # (Auto) 0.72 L [place] # (Auto) 0.5 Eos # (Auto) 0.0 Baso # (Auto) 0.0 Abs Immat Gran (auto) 0.14 H Absolute Neuts (auto) 6.9 H Absolute Nucleated RBC 0.0 Nucleated RBC % 0.0 % Immature Plt Fraction 5.2 Sodium 140 Potassium 3.8 Chloride 109 H Carbon Dioxide 27 Anion Gap 4 L BUN 14 D Creatinine 0.80 Estim Creat Clear Calc 72 Estimated GFR > 60 Glucose 114 H Calcium 8.9 Iron 70 TIBC 276 % Saturation 25 Ferritin 108.00 Total Bilirubin 1.2 AST 90 H ALT 237 H Alkaline Phosphatase 168 H Total Protein 6.0 L Albumin 3.1 L Vitamin B12 794.0 Folate 17.1 Post-procedural complaints: none Patient Feedback: Patient satisfied with anesthetic care.
[2020-03-01] MEDS: diphenhydrAMINE HCl INJ 50 MG/ML VIAL 12.5 MG IV PUSH (13:17)
--- NOTE | 2020-03-01 13:19 | SUR.PREOP ---
1315; PT C/O ITCHING TO CHEST. PT HAS NOTABLE HIVES TO UPPER BILAT CHEST AND BILAT AXILLA. DR LAURA NOTIFIED. BENADRYL ORDERED AND GIVEN. 1319; PT HAS A FEW MORE HIVES TO ABDOMEN. DR CLEVELAND NOTIFED.
--- NOTE | 2020-03-01 13:24 | SUR.PREOP ---
DR LAURA NOTIFIED OF METOPROLOL HELD TODAY FOR HR 55
--- NOTE | 2020-03-01 13:27 | WPDHPUPDATE1 ---
History and Physical Update Update Date/Time: 03/01/20 13:27 History and Physical has been reviewed, including an updated exam of the patient. There are NO changes in the patient's condition. Risks, benefits, and alternatives have been discussed and questions answered. Patient agrees to proceed with procedure.
--- NOTE | 2020-03-01 13:30 | WPDANESEFPP ---
Anes - Eval Final PreProcedure Day of Procedure 03/01/20 13:30 Patient weight: overweight Heart: regular rate and rhythm Lungs: clear to auscultation Airway: Mallampati scale class II Neurological: alert and oriented Last oral intake: >/= 8 hours ASA classification: III Emergent: no Anesthetic plan: proceed Anesthesia type and monitoring: general ETT and standard monitoring Informed Consent: The patient's anesthetic plan and its attendant risks and benefits were discussed with the patient/family/POA. Questions were solicited and answers provided to the satisfaction of the patient/family/POA.
[2020-03-01] MEDS: LACTATED RINGERS 1,000 ML 30 ML IV CONT ×2 (13:33→16:50)
--- NOTE | 2020-03-01 16:05 | PM.PROC ---
Procedure Note - Detailed Date of procedure: 03/01/20 Pre-op diagnosis: Cholecystitis with biliary stones and jaundice. Post-op diagnosis: same Procedure performed: Laparoscopic Cholecystectomy with Intraoperative Cholangiogram Description of procedure: Procedure as well as risks, benefits, and alternatives were discussed with patient. Written consent was obtained and placed in chart prior to procedure. The patient was brought back to surgical suite. Patient was placed in supine position on operating table. Time-out was done to confirm patient and procedure. Patient was then intubated by the anesthesia department. Abdomen was prepped and draped in sterile fashion using chlorhexidine prep. 0.5% bupivacaine with epinephrine was infiltrated at each site of incision. An 11 millimeter vertical incision was made at the inferior portion of the umbilicus using a 15 blade scalpel. Blunt dissection was carried down to the linea alba. The linea alba was then incised using a 15 blade scalpel. The peritoneum was then bluntly entered. An 11 millimeter trocar was inserted and cabon dioxied insuflation was used to create a pneumoperitoneum. The camera was inserted and the abdomen was inspected. The patient was placed in reverse Trendelenberg position and rotated slightly to the left. A 5 millimeter incision was made in the epigastric region, and a 5 millimeter trocar was inserted under direct visualization. Two 5 millimeter incisions were made in the right upper quadrant, and two 5 millimeter trocars were inserted under direct visualization. The gallbladder was identified and grasped at the fundus and retracted superiorly. It was then grasped at the infundibulum retracted laterally. Careful dissection around the neck of the gallbladder was performed using blunt dissection with a [place] grasper and hook electrocautery. The cystic duct was identified, and a window was created behind it. The cystic artery was also identified and a window was created behind it. The critical view of safety was identified, visualizing the cystic duct running directly into the neck of the gallbladder, and the cystic artery running directly into the wall of the gallbladder. The [place] cholangio clamp was placed across the distal neck of the gallbladder and clamped. The cholangiocatheter was then advanced into the distal neck of the gallbladder and bile was able to be aspirated and a catheter flushed with saline with ease. The patient was then flattened out in bed a in the cholangiogram was obtained using Omnipaque contrast. The images were sent to the radiologist for interpretation. The patient was then placed back in reverse Trendelenburg position. A 5 millimeter clip cheese blender was then used to place 2 clips proximally and 1 clip distally on both the cystic duct and cystic artery. They were then both transected using endoscopic scissors. Once safely away from the nara hepatitis, the gallbladder was dissected free from the liver bed using hook electrocautery. Hemostasis was achieved along the way. The gallbladder was removed completely and then removed through the subxiphoid port. The liver bed was then inspected. Hemostasis appeared adequate, and our clips appeared secure. The area was gently irrigated with sterile saline. No other abnormalities were seen. The patient was flattened out in bed, and 1 final inspection was made around the abdominal cavity. The ports were then removed under direct visualization, the camera was removed, and the pneumoperitoneum was released. The fascia of the umbilical incision was approximated using an 0 Vicryl [id number] suture. The skin of the incisions was approximated using 4-0 Monocryl subcuticular sutures. Exofin glue was applied on top. The patient was then awakened from anesthesia, extubated, and transferred to recovery. Anesthesia: GETA and local (0.25% bupivicaine with epinephrine) Surgeon: Rocael Moura DO Estimated blood loss (mL)
[2020-03-01] MEDS: fentaNYL CITRATE INJ (*CRX) 100 MCG/2 ML VIAL 25 MCG IV PUSH (16:25)
[2020-03-01] MEDS: ONDANSETRON INJ 4 MG/2 ML VIAL IV PUSH (16:35)
[2020-03-01] MEDS: MORPHINE SULFATE (*CRX) 2 MG/ML INJ IV PUSH (17:32)
--- NOTE | 2020-03-01 17:44 | PC.NURSE ---
1740-HR remains low. PA informed and B-Rachell held. Will continue to monitor.
[2020-03-01] MEDS: LACTATED RINGERS 1,000 ML 100 ML IV CONT (17:59)
--- NOTE | 2020-03-01 18:21 | PM.IMPN ---
Progress Note: A&P Assessment and Plan (1) Acute cholecystitis due to biliary calculus: Code(s): K80.00 - Calculus of gallbladder with acute cholecystitis without obstruction Status: Inactive Assessment and Plan: The pt presented with epigastric pain, nausea, and vomiting for 4 weeks in the setting of cholelithiasis. Abdominal ultrasound performed 02/28/20 showed echogenic focus at the pancreatic head suspicious for distal common bile duct stone and gallbladder wall thickening suspicious for cholecystitis. LFTs continue to improve and bilirubin has normalized. WBC is normal and he is afebrile. He was on IV zosyn empirically (initiated 02/28) given concern for acute cholecystitis. He developed hives today so zosyn was discontinued. Blood cultures were obtained after the initiation of antibiotics preliminary results show no growth. Dr. Hooks with GI and Dr. Moura with general surgery are following. Appreciate GI and general surgery input. He underwent laparoscopic cholecystectomy by Dr. Moura today (03/01/20). Continue analgesics and antiemetics as needed. Post-op care including post-op DVT ppx, wound care, diet per general surgery. Pain is well-controlled. (2) Jaundice: Code(s): R17 - Unspecified jaundice Status: Resolved Assessment and Plan: Secondary to above. Resolved. Bilirubin is normal. (3) Hypertension: Code(s): I10 - Essential (primary) hypertension Status: Chronic Assessment and Plan: Blood pressures are at target. Metoprolol not given today as HR is <50l. Continue to monitor. (4) Hyperlipidemia: Code(s): E78.5 - Hyperlipidemia, unspecified Status: Chronic Assessment and Plan: LFTs are elevated, likely due to suspected biliary obstruction. Hold atorvastatin for now and resume when clinically appropriate. LFTs are improving. (5) Elevated lactic acid level: Code(s): R79.89 - Other specified abnormal findings of blood chemistry Status: Resolved Assessment and Plan: Resolved. Lactic acid was 4.8 at admission to OSH and normalized to 2.0 after IV fluids. (6) Anemia: Code(s): D64.9 - Anemia, unspecified Status: Acute Assessment and Plan: Hb was normal at 14.1 at admission and decreased to 11.7. Hb is 11.4 today, stable. This was likely dilutional. Iron, vitamin B12, and folate are normal. Continue to monitor. Transfuse as needed to maintain Hb >7. (7) CAD (coronary artery disease): Qualifiers: Associated angina: without angina Coronary Disease-Associated Artery/Lesion type: [place] artery [place] vs. transplanted heart: [place] heart Qualified Code(s): I25.10 - Atherosclerotic heart disease of [place] coronary artery without angina pectoris Code(s): I25.10 - Atherosclerotic heart disease of [place] coronary artery without angina pectoris Status: Chronic Assessment and Plan: Chronic. He has no complaints of angina. Continue ASA EC 81mg. Metoprolol ordered but held as HR is <50. (8) Urticaria: Code(s): L50.9 - Urticaria, unspecified Status: Acute Assessment and Plan: Secondary to zosyn which was discontinued. He received benadryl. Zostyn was added to allergy list. Continue supportive care with benadryl as needed. Continue to mointor. Subjective Date/time seen: 03/01/20 18:21 Mr. Hong is a 69 y.o. male with PMH significant for CAD s/p CABG, HLD, HTN, and nephrolithiasis who is seen in follow-up for likely choledocholithiasis and cholecystitis. The pt developed urticaria after zosyn infusion today. Zosyn was discontinued and he was given benadryl. He is doing fine from this standpoint with no significant itching or worsening rash. His pain is well-controlled post-op and he rates the incisional discomfort it at 4-5/10. He did drink some water and tolerated this well. He denies chest pain and dyspnea. He has no nausea or vomiting.
[2020-03-02] VITALS (7 sets, daily range): BP systolic 118–143; BP diastolic 66–84; PULSE 60–75; RESP 16–20; TEMP 36.4–37.3; O2SAT 92–96
[2020-03-02 05:44] LABS: Hematocrit 37.5 % (42.0-52.0); Hemoglobin 12.4 g/dL (14.0-18.0); Mean Corpuscular HGB Conc 33.1 g/dl (32-36); Mean Corpuscular Hemoglobin 29.3 pg (26-34); Mean Corpuscular Volume 88.7 fl (80-100); Mean Platelet Volume 10.5 fl (7.4-10.4); Platelet Count Result 177 k/mm3 (150-375); Red Blood Count 4.23 M/mm3 (4.6-6.20); Red Cell Distribution Width 13.4 % (11.5-14.5); White Blood Count 6.4 K/mm3 (4.5-10.0)
[2020-03-02 06:09] LABS: Alanine Aminotransferase 194 U/L (4-50); Albumin Level 3.1 g/dL (3.5-5.1); Alkaline Phosphatase 171 U/L (38-126); Anion Gap 7 mmol/L (8-16); Aspartate Amino Transferase 94 U/L (17-59); Bilirubin,Total 0.9 mg/dL (0.2-1.3); Blood Urea Nitrogen 13 mg/dL (9-20); Calcium 8.6 mg/dL (8.4-10.2); Carbon Dioxide 28 mmol/L (22-30); Chloride 104 mmol/L (98-107); Estimated CRCL calculation 64 ml/min; Estimated Glomerular Filt Rate > 60; Glucose 86 mg/dL (75-110); Magnesium 2.1 mg/dL (1.6-2.3); Potassium 3.2 mmol/L (3.4-5.0); Sodium 139 mmol/L (137-145)
[2020-03-02] MEDS: HYDROcodone/acetaminophen (*CRX) 5-325 MG TABLET 1 TAB PO (06:15)
[2020-03-02] MEDS: diphenhydrAMINE HCl CAP 25 MG CAPSULE PO ×2 (06:29→13:05)
--- NOTE | 2020-03-02 07:30 | PC.NURSE ---
DR. AMBROCIO HERE TO SEE PT. CONDITION UPDATE GIVEN.
--- NOTE | 2020-03-02 08:22 | WPDGIPROGNO ---
Progress Note: A&P Assessment and Plan (1) Jaundice: Code(s): R17 - Unspecified jaundice Status: Resolved (2) Cholelithiasis: Code(s): K80.20 - Calculus of gallbladder without cholecystitis without obstruction Status: Acute Assessment and Plan: Patient is status post lap choly. Intraoperative cholangiogram revealed a clear common bile duct. I suspect he passed a common bile duct gallstones. Plan is to advance diet discharge when okay with surgical service. Subjective Date/time seen: 03/02/20 08:22 Patient did well after lap choly yesterday. Surgical findings noted. No retained common duct stones. Patient denies any significant abdominal pain today. Mild incisional tenderness. Review of Systems Review of Systems: All systems reviewed & are unremarkable except as noted in HPI and below Exam Narrative: Exam Narrative: Patient alert. Vital signs stable. He remains anicteric. Lungs are clear. Heart without murmur. Abdomen bowel sounds present soft nontender with no organomegaly. Incisions healing well. Objective Data Vital Signs Vital Signs: Vital Signs - 24 hr 03/01/20 08:53 03/01/20 08:58 03/01/20 13:01 Temperature 97.5 F L Pulse Rate 56 L 49 L 54 L Respiratory Rate 16 16 Blood Pressure 132/83 126/80 Pulse Oximetry 96 96 03/01/20 16:06 03/01/20 16:20 03/01/20 16:45 Temperature 97.7 F Pulse Rate 57 L 54 L 59 L Respiratory Rate 17 17 16 Blood Pressure 141/67 H 135/67 135/67 Pulse Oximetry 100 97 97 03/01/20 17:04 03/01/20 17:15 03/01/20 17:30 Temperature Pulse Rate 52 L 57 L 52 L Respiratory Rate 14 14 14 Blood Pressure 136/73 150/79 H 152/82 H Pulse Oximetry 98 93 93 03/01/20 17:42 03/01/20 17:45 03/01/20 18:00 Temperature Pulse Rate 51 L 50 L 49 L Respiratory Rate 14 14 Blood Pressure 163/75 H 154/83 H Pulse Oximetry 99 97 03/01/20 18:30 03/01/20 19:45 03/01/20 22:35 Temperature 97.8 F Pulse Rate 50 L 47 L 50 L Respiratory Rate 17 16 16 Blood Pressure 134/75 152/76 H 142/76 H Pulse Oximetry 97 100 96 03/02/20 02:35 03/02/20 06:15 Temperature 99.1 F 98.3 F Pulse Rate 67 72 Respiratory Rate 16 16 Blood Pressure 137/76 118/70 Pulse Oximetry 95 94 Intake/Output Intake/Output: Intake & Output 02/28/20 02/29/20 03/01/20 03/02/20 23:59 23:59 23:59 23:59 Intake Total 0 2950 2690 240 Output Total 400 Balance 0 2950 2290 240 Meds/Results Medications: Active Medications Generic Name Dose Route Start Last Admin Trade Name Freq PRN Reason Stop Dose Admin Acetaminophen 650 mg 03/01/20 17:14 Acetaminophen 325 Mg Tablet PO Q6H PRN Mild Pain (1-3) or Fever Hydrocodone Bitart/Acetaminophen 1 tab 03/01/20 17:14 03/02/20 06:15 Hydrocodone/Acetaminophen (*Crx) 5-325 Mg Tablet PO 1 tab Q4H PRN Administration Pain Rated 4-6 Hydrocodone Bitart/Acetaminophen 1 tab 03/01/20 17:14 Hydrocodone/Acetaminophen (*Crx) 7.5-325 Mg Tablet PO Q4H PRN Pain Rated 7-10 Aspirin 81 mg 03/01/20 09:00 03/01/20 10:00 Aspirin 81 Mg Enteric Tablet PO 81 mg DAILY GRAEME Administration Diphenhydramine HCl 25 mg 03/01/20 20:33 03/02/20 06:29 Diphenhydramine Hcl Cap 25 Mg Capsule PO 25 mg Q8HR PRN Administration Itching Docusate Sodium 100 mg 02/29/20 17:00 03/01/20 17:42 Docusate Sodium 100 Mg Capsule PO 100 mg BID GRAEME Administration Fluticasone Propionate 1 spray 02/29/20 09:00 03/01/20 17:42 Fluticasone Propionate 0.05% Na Spr 16 Gm Btl (*Bkc) NASAL 1 spray BID GRAEME Administration Metoprolol Tartrate 25 mg 02/29/20 17:00 03/01/20 17:42 Metoprolol Tartrate 25 Mg Tablet PO Not Given BID GRAEME Morphine Sulfate 2 mg 03/01/20 17:14 03/01/20 17:32 Morphine Sulfate (*Crx) 2 Mg/Ml Inj IV PUSH 2 mg Q2H PRN Administration Pain Rated 4-6 Morphine Sulfate 4 mg 03/01/20 17:14 Morphine Sulfate (*Crx) 4 Mg/Ml Inj IV PUSH
--- NOTE | 2020-03-02 09:04 | WPDANESPN ---
Anes - Prog Note Post-Op Date/Time: 03/02/20 09:04 Cardiovascular status: normal Respiratory status: normal Airway patency: baseline Mental status: baseline Post-Op hydration status: normal Vital Signs: Last Vital Signs Temp 36.8 C 03/02/20 06:15 Pulse 72 03/02/20 06:15 Resp 16 03/02/20 06:15 BP 118/70 03/02/20 06:15 Pulse Ox 94 03/02/20 06:15 Pain Score (VAS): 0 I/O: Intake & Output 03/01/20 03/02/20 03/02/20 23:59 07:59 15:59 Intake Total 590 240 Output Total 400 Balance 190 240 Laboratory Tests 03/02/20 05:05 03/02/20 05:05 03/02/20 03/02/20 05:05 05:05 WBC 6.4 RBC 4.23 L Hgb 12.4 L Hct 37.5 L MCV 88.7 MCH 29.3 MCHC 33.1 RDW 13.4 Plt Count 177 MPV 10.5 H Sodium 139 Potassium 3.2 L Chloride 104 Carbon Dioxide 28 Anion Gap 7 L BUN 13 Creatinine 0.90 Estim Creat Clear Calc 64 Estimated GFR > 60 Glucose 86 Calcium 8.6 Magnesium 2.1 Total Bilirubin 0.9 AST 94 H ALT 194 H Alkaline Phosphatase 171 H Total Protein 6.0 L Albumin 3.1 L Microbiology 02/29/20 00:29 Blood Blood Culture - Preliminary 02/29/20 00:29 Blood Blood Culture - Preliminary Post-procedural complaints: none Patient Feedback: Patient satisfied with anesthetic care.
--- NOTE | 2020-03-02 09:45 | PC.NURSE ---
DALLIN GARCIA PET SITTER HERE TO SEE PT FOR SURGERY. CONDITION UPDATE GIVEN. AWARE OF PT'S HIVES TO CHEST, ABDOMEN, AXILLA, ARMS. PT. PASSING GAS, HAS SOFT, ACTIVE BOWEL SOUNDS. TOLERATED CLEAR LIQ BREAKFAST WELL. NO NAUSEA OR PAIN TO ABDOMEN AT THIS TIME.
[2020-03-02] MEDS: DOCUSATE SODIUM 100 MG CAPSULE PO ×2 (10:43→17:31)
[2020-03-02] MEDS: METOPROLOL TARTRATE 25 MG TABLET PO ×2 (10:43→17:27)
[2020-03-02] MEDS: POTASSIUM CHLORIDE 20 MEQ TABLET 40 MEQ PO (10:43)
[2020-03-02] MEDS: FLUTICASONE PROPIONATE 0.05% NA SPR 16 GM BTL (*BKC) 1 SPRAY NASAL ×2 (10:43→17:30)
[2020-03-02] MEDS: ASPIRIN 81 MG ENTERIC TABLET PO (10:43)
--- NOTE | 2020-03-02 11:11 | PM.PNGS ---
Progress Note: A&P Assessment and Plan (1) Acute cholecystitis due to biliary calculus: Code(s): K80.00 - Calculus of gallbladder with acute cholecystitis without obstruction Status: Inactive Assessment and Plan: POD#1 lap valentina with IOC. IOC showed no common bile duct stone. Okay from a surgical standpoint to discharge the patient later today if he is tolerating a low fat diet. Follow-up with Dr. Moura in 2 weeks. Low fat diet x 2 weeks. Discussed discharge instructions with the patient in detail and answered all questions. The patient feels comfortable alternating Tylenol/Ibuprofen for pain control going home since he had a reaction to the hydrocodone. (2) Elevated liver enzymes: Code(s): R74.8 - Abnormal levels of other serum enzymes Status: Acute Assessment and Plan: Continue to trend towards normal. See plan above. (3) CAD (coronary artery disease): Qualifiers: Coronary Disease-Associated Artery/Lesion type: [place] artery [place] vs. transplanted heart: [place] heart Associated angina: without angina Qualified Code(s): I25.10 - Atherosclerotic heart disease of [place] coronary artery without angina pectoris Code(s): I25.10 - Atherosclerotic heart disease of [place] coronary artery without angina pectoris Status: Chronic Additional Plan Discussed the patient's plan of care with Dr. Moura. Subjective Subjective Date/Time Seen: 03/02/20 10:11 Post Op day: 1 (lap valent[place] with IOC) Patient reports: no new complaints, pain is less, voiding w/o difficulty, flatus and no bowel movement Interval history: Patient seen this morning. Reports having hives after receiving hydrocodone early this morning. States his abdominal pain is tolerable. He denies any nausea, vomiting or bloating. Passing gas but no BM yet. No other complaints yet. He had clear liquids this morning and tolerated that well. No other complaints at this time. Review of Systems Review of Systems: All systems reviewed & are unremarkable except as noted in HPI and below Constitutional: Constitutional: Reports no additional constitutional complaints, Denies chills and Denies fever(s) Cardiovascular: Cardiovascular: Reports no additional cardiovascular complaints, Denies chest pain and Denies leg edema Respiratory: Respiratory: Reports no additional respiratory complaints, Denies cough and Denies dyspnea Gastrointestinal: Gastrointestinal: Reports as per HPI and Reports no additional gastrointestinal complaints Exam Const: General: comfortable, no acute distress, alert and awake Orientation/consciousness: patient oriented x3 Resp: Effort & Inspection: normal respiratory effort and able to speak in complete sentences Auscultation: clear to auscultation bilaterally Cardio: Rate: regular rate Rhythm: regular rhythm GI: Inspection: non-distended and incision (Incisions clean and dry, glue intact) GI Palp: Yes Soft to palpation, Yes Tenderness to palpation present (GI) (incisional), No Guarding due to palpation present (GI) and No Rebound tenderness present Auscultation: normal bowel sounds Neuro: General: patient oriented x3 and moves all extremities Cranial nerves: Yes CN's II-XII intact bilaterally Speech: normal speech Extrem: General: no calf tenderness and no edema Psych: Mental Status: mental status grossly normal Attitude: cooperative Thought process: Normal thought process present Thought content: Yes Normal thought content present Objective Data Vital Signs Vital Signs: Vital Signs - 24 hr 03/01/20 13:01 03/01/20 16:06 03/01/20 16:20 Temperature 97.5 F L 97.7 F Pulse Rate 54 L 57 L 54 L Respiratory Rate 16 17 17 Blood Pressure 126/80 141/67 H 135/67 Pulse Oximetry 96 100 97 03/01/20 16:45 03/01/20 17:04 03/01/20 17:15 Temperature Pulse Rate 59 L 52 L 57 L Respiratory Rate 16 14 14 Blood Pressure 135/67 136/73 150/79 H Pulse Oximetry 97 98 93 03/01/20 17:30 03/01/20
--- NOTE | 2020-03-02 13:05 | PC.NURSE ---
HAVE LEFT 2 MESSAGES FOR [facility] FOR PT'S C/O ITCHING AND INCREASING HIVES, PINK AREAS TO CHEST, ABDOMEN AND ARMS. NOW REQUESTED FROM [facility] ORDER TO GIVE PT. ADDITIONAL PO BENADRYL. BENADRYL 25MG GIVEN PO AND WILL MONITOR HIVES AND ITCHING. PT. DENIES ORAL, FACIAL OR THROAT SENSATIONS OR IRRITATIONS (ANAPHYLAXIS SX) AT THIS TIME.
[2020-03-02] MEDS: IBUPROFEN 400 MG TABLET PO (15:25)
--- NOTE | 2020-03-02 15:25 | PC.NURSE ---
IBUPROFEN GIVEN PO FOR ABDOMINAL INCISIONAL PAIN AT THIS TIME. TOLERATED LOW FAT LUNCH TRAY WELL. DENIES NAUSEA OR CRAMPING. HIVES NO WORSE, BUT SLIGHTLY BETTER AFTER BENADRYL DOSE. WILL UPDATE [facility].
--- NOTE | 2020-03-02 16:47 | PM.DS ---
DS: Admitting Diagnosis Admitting Diagnosis Admitting Diagnosis: Cholecystitis with biliary stones and jaundice. DS: Discharge Diagnosis Discharge Diagnosis (1) Acute cholecystitis due to biliary calculus: Code(s): K80.00 - Calculus of gallbladder with acute cholecystitis without obstruction Status: Inactive Assessment and Plan: Discharge Summary (Date of service 03/02/20): Mr. Hong is a 69 y.o. male with PMH significant for CAD s/p CABG, HLD, HTN, and nephrolithiasis who presented to the emergency department at the [facility] 02/28/20 for the evaluation of RUQ abdominal pain which radiated to the back and upper right scapula for four weeks with associated N/V and chills. CT abd/pelvis from 02/18 showed cholelithiasis with possible stone in the distal common bile duct. LFTs/bilirubin were markedly elevated. He was transferred to [facility] for evaluation by GI and general surgery and he was admitted to the hospitalist service. He was treated with IV zosyn due to concern for associated cholecystitis but subsequently developed urticaria and this was discontinued and added to his allergy list. He underwent ERCP 03/01/[address] Hooks which was unsuccessful. He underwent laparoscopic cholecystectomy with intraoperative cholangiogram by Dr. Moura 03/01/20. He also developed urticaria from hydrocodone so this was also discontinued and he was given ibuprofen and tylenol for pain. His abdominal pain resolved and he was tolerating low fat diet well. He felt much better overall. LFTS and bilirubin improved. He was cleared for discharge from a GI and general surgery standpoint. He was discharged in hemodynamically stable condition on the evening of 03/02/20. (2) Jaundice: Code(s): R17 - Unspecified jaundice Status: Resolved Assessment and Plan: Secondary to above. Bilirubin normalized and jaundice resolved. (3) Hypertension: Code(s): I10 - Essential (primary) hypertension Status: Chronic Assessment and Plan: Blood pressures were well-controlled. (4) Hyperlipidemia: Code(s): E78.5 - Hyperlipidemia, unspecified Status: Chronic Assessment and Plan: Atorvastatin was held due to transaminitis and resumed at discharge. (5) Elevated lactic acid level: Code(s): R79.89 - Other specified abnormal findings of blood chemistry Status: Resolved Assessment and Plan: Resolved. Lactic acid was 4.8 at admission to OSH and normalized to 2.0 after IV fluids. (6) Anemia: Code(s): D64.9 - Anemia, unspecified Status: Acute Assessment and Plan: Hb was normal at 14.1 at admission and decreased to 11.7. Hb is 11.4 today, stable. This was likely dilutional. Iron, vitamin B12, and folate are normal. He was given lab orders for repeat CBC for monitoring. (7) CAD (coronary artery disease): Qualifiers: Coronary Disease-Associated Artery/Lesion type: [place] artery [place] vs. transplanted heart: [place] heart Associated angina: without angina Qualified Code(s): I25.10 - Atherosclerotic heart disease of [place] coronary artery without angina pectoris Code(s): I25.10 - Atherosclerotic heart disease of [place] coronary artery without angina pectoris Status: Chronic Assessment and Plan: Chronic. He was asymptomatic. Metoprolol and ASA were continued at discharge. He was advised to hold metoprolol for HR <50. (8) Urticaria: Code(s): L50.9 - Urticaria, unspecified Status: Acute Assessment and Plan: Secondary to zosyn and hydrocodone which were discontinued. He received benadryl. DS: Summary Hospital Course Reason for hospitalization: Abdominal pain Hospital Course: As above. Status at Discharge Functional status at discharge: independent ambulation Overall status at discharge: patient is back to baseline Time Spent with Patient Time attestati
--- NOTE | 2020-03-02 18:15 | PC.NURSE ---
HAS BEEN UP IN ROOM AND DRESSED SITTING IN CHAIR SINCE 1330 TO SOOTHE SKIN. NO INCREASE IN HIVES. HAS HAD NO IV SITE THIS SHIFT. TAKING PO LIQUIDS WELL AND HAS TOLERATED LOW FAT DIET WELL. STATES ABDOMINAL INCISIONAL PAIN AT 0-1/10 WITH MOVEMENT AND COUGH. ENCOURAGED CDB. WILL DISCHARGE HOME. REVIEWED DISCHARGE INSTRUCTIONS WITH PT. ALL QUESTIONS ANSWERED. VOICED UNDERSTANDING OF ALL. AWAIT ARRIVAL OF TO [employer]ING ESTIMATOR.
--- NOTE | 2020-03-02 18:30 | PC.NURSE ---
DISCHARGED HOME, OUT VIA WC TO 'S WAITING CAR WITH ALL PERSONAL BELONGINGS AND DISCHARGE PACKET. VOICES NO C/O. NO DISTRESS NOTED.
== END 2020-03-02 18:30 | disposition home or self-care (01) | DRG 419 ==
PROVIDERS: Internal Medicine Gastroenterology; Physician Assistant; Surgery; Admitting Provider Student in an Organized Health Care Education/Training Program; PCP Internal Medicine; Visit Provider Physician Assistant
PROC: 0DJ08ZZ Inspection of Upper Intestinal Tract, Via Natural or Artificial Opening Endoscopic (ICD-10-PCS; CPT 43260; principal; 2020-02-29 10:30)
PROC: 0FT44ZZ Resection of Gallbladder, Percutaneous Endoscopic Approach (ICD-10-PCS; CPT 47562; principal; 2020-03-01 14:00)
DX: K80.00 Calculus of gallbladder with acute cholecystitis without obstruction (principal); K26.9 Duodenal ulcer, unspecified as acute or chronic, without hemorrhage or perforation; K20.90 Esophagitis, unspecified without bleeding; E86.0 Dehydration; D64.9 Anemia, unspecified; R79.89 Other specified abnormal findings of blood chemistry; I25.10 Atherosclerotic heart disease of native coronary artery without angina pectoris; I10 Essential (primary) hypertension; E78.5 Hyperlipidemia, unspecified; L50.0 Allergic urticaria; T36.0X5A Adverse effect of penicillins, initial encounter; T40.2X5A Adverse effect of other opioids, initial encounter; Z79.82 Long term (current) use of aspirin; Z79.899 Other long term (current) drug therapy; Z87.442 Personal history of urinary calculi; Z95.1 Presence of aortocoronary bypass graft
CPT/HCPCS: 36415; 74300; 80053; 80074; 82247; 82248; 82607; 82728; 82746; 83540; 83550; 83735; 85025; 85027; 85055; 85610; 85730; 87040; 88304; A9270; C9113; J0330; J1100; J1200; J2270; J2405; J2543; J2704; J2710; J3010; J7030; J7120; Q9966

== ENCOUNTER 2021-05-28 15:16 | Outpatient (CLI) | payer MEDICARE, SELFPAY ==
--- NOTE | ~2021-05-28 | CT_ITS ---
EXAMINATION: CT abdomen pelvis w con DATE: 05/28/2021 15:44 INDICATION: Abdominal pain, guarding. Constipation, diarrhea, 5-6 pounds weight loss, blood in stools . TECHNIQUE: Computed tomography (CT) of the abdomen and pelvis was performed with 100 CC Omnipaque 350 intravenous contrast. Automated exposure control and iterative reconstruction technique were employe d. Exam dose: 582.93 mGy-cm total exam DLP. COMPARISON: 03/01/2020 operative cholangiogram 02/28/2020 limited abdominal ultrasound examination 02/19/[address] abdomen pelvis FINDINGS: Status post sternotomy. Normal heart size. No pericardial or pleural effusion. (5 mm left lower lobe nodule (series 4 image 9). 2.5 mm pleural-based nodule with suggestion of calci fication, posterolateral left lower lobe, likely benign (series 4 image 14). 3.5 mm calcified left lower lobe pulmonary granuloma (image 28). 7 mm left hepatic cyst (series 3 image 20). 8 mm indeterminate right hepatic dome hypoattenuating hepatic lesion, indeterminate (series 3 image 2 3). Indeterminate approximately 3.7 x 7 mm hypoattenuating lesion of the right hepatic lobe (series 3 melvin ge 34). Status post cholecystectomy. No bile duct or pancreatic duct dilatation. No pancreatic mass lesion or calcification. Normal splenic size. Normal morphology of the adrenal glands. There are multiple bilateral renal cysts, measuring up to 2.4 cm on the right, 2.5 cm on the left. There are 2 approximately 3 mm nonobstructing left renal calculi No ureteral calculus or hydroureteronephrosis. The urinary bladder is unremarkable. There is prostate enlargement and calcification. Normal caliber of the abdominal aorta. No intraperitoneal or retroperitoneal or pelvic mass lesion or adenopathy or ascites. There are numerous diverticula of the sigmoid colon; no CT evidence of diverticulitis. Normal appendi x. No evidence of appendicitis. No bowel obstruction, bowel wall thickening, pneumatosis or intraperi toneal free air. Small fat-containing umbilical hernia. Very small fat-containing left inguinal hernia and larger fat-containing right inguinal hernia. No suspicious osteolytic or osteoblastic lesions. IMPRESSION: Subtle 8 mm or smaller hepatic nonspecific lesions, including probable 7.2 mm left hepat ic cyst Status post cholecystectomy Bilateral renal cysts Left nonobstructive nephrolithiasis Diverticulosis of the sigmoid colon; no CT evidence of diverticulitis Prostate enlargement and calcifications Small fat-containing umbilical hernia. Bilateral fat-containing inguinal hernias, larger on the right . Reviewed, dictated and finalized at [facility]. Reviewed, dictated and finalized at [facility]. A OPERATOR IMPRESSION: Subtle 8 mm or smaller hepatic nonspecific lesions, including prob able 7.2 mm left hepatic cyst Status post cholecystectomy Bilateral renal cysts Left nonobstructive nephrolithiasis Diverticulosis of the sigmoid colon; no CT evidence of diverticulitis Prostate enlargement and calcifications Small fat-containing umbilical hernia. Bilateral fat-containing inguinal hernia s, larger on the right.
[2021-05-28 15:42] LABS: Estimated Glomerular Filt Rate > 60
== END 2021-05-28 15:17 | disposition home or self-care (01) ==
LOC: ANHIMG 15:20
PROVIDERS: PCP Internal Medicine; Visit Provider Nurse Practitioner
DX: R19.8 Other specified symptoms and signs involving the digestive system and abdomen (principal); R10.9 Unspecified abdominal pain; N28.1 Cyst of kidney, acquired; Z90.49 Acquired absence of other specified parts of digestive tract; N20.0 Calculus of kidney; K57.30 Diverticulosis of large intestine without perforation or abscess without bleeding; N40.1 Benign prostatic hyperplasia with lower urinary tract symptoms; K42.9 Umbilical hernia without obstruction or gangrene
CPT/HCPCS: 74177; Q9967

== ENCOUNTER 2021-06-14 03:04 | Day surgery (SDC) | payer MEDICARE, SELFPAY ==
[2021-06-01 15:36] VITALS: BMI 27.8
--- NOTE | 2021-06-13 13:44 | WPDGICN ---
Assessment and Plan Assessment and plan (1) Blood in stool: Code(s): K92.1 - Melena Status: Acute Assessment and Plan: .Colonoscopy with possible biopsy or polypectomy or cautery or injection of substances. (2) Chronic diarrhea: Code(s): K52.9 - Noninfective gastroenteritis and colitis, unspecified Status: Acute Assessment and Plan: Inflammatory bowel disease is likely given his symptoms GI Consult Note Consult date/time: 06/13/21 13:44 HPI: Willie Hong is a 70 year old male Referred for investigation of lower abdominal cramping, loose stools, and blood in the stool. This began about 2 months ago. He had not been traveling and had not been on antibiotics prior to the onset of the symptoms Review of Systems Review of Systems: All systems reviewed & are unremarkable except as noted in HPI and below PMFSH Past Medical History Medical History Coronary artery disease Hyperlipidemia Hypertension Kidney stones Surgical History Surgical History History of coronary artery bypass graft x 3 (~06/2014) History of laparoscopic cholecystectomy 03/01/20 Laparoscopic Cholecystectomy with Intraoperative Cholangiogram History of left inguinal hernia repair Status post excision of lipoma From the side of the neck. Family History Family History Mother Acute myocardial infarction Cancer Alzheimer disease Father Diabetes mellitus Skin cancer Social History Social History Social History: Surrogate decision maker: Leeann Hong, . Code status: Full code. Smoking status: Never smoker Second hand tobacco smoke exposure: No Alcohol intake: never Substance use: never Substance use type: does not use Living arrangements: with family Additional living arrangements comments: Resides with family members in [place]. Gender identity (if verbalized by the patient): Male Spiritual care concerns: No Meds Home Medications and Allergies Home Medications Medication Instructions Recorded Confirmed Type aspirin 81 mg tablet,delayed 81 mg PO DAILY 01/13/20 06/01/21 History release atorvastatin 80 mg tablet 80 mg PO DAILY 01/13/20 06/01/21 History docusate sodium 100 mg capsule 100 mg PO BID 01/13/20 06/01/21 History ezetimibe 10 mg tablet 10 mg PO DAILY 01/13/20 06/01/21 History metoprolol tartrate 25 mg tablet 25 mg PO BID tablet 01/13/20 06/01/21 History multivitamin 1 tablet PO DAILY 01/13/20 06/01/21 History omega-3 fatty acids 1,000 mg 1,000 mg PO DAILY 01/13/20 06/01/21 History capsule acetaminophen [Mapap 650 mg PO Q6H PRN #14 tablet 03/02/20 06/01/21 Rx (acetaminophen)] diphenhydramine HCl 25 mg PO Q6H PRN #14 cap 03/02/20 06/01/21 Rx ibuprofen 400 mg PO Q6H PRN #14 tablet 03/02/20 06/01/21 Rx fluticasone propionate 50 See Rx Instructions .ROUTE 05/01/20 06/01/21 Rx mcg/actuation nasal .COMPLEX #48 ml spray,suspension Allergies Allergy/AdvReac Type Severity Reaction Status Date / Time piperacillin [From Zosyn] Allergy Intermediate Hives Verified 06/14/21 11:14 tazobactam [From Zosyn] Allergy Intermediate Hives Verified 06/14/21 11:14 hydrocodone Allergy Hives Verified 06/14/21 11:14 NKFA Allergy Mild unknown Uncoded 06/01/21 15:32 Exam Const: General: alert Orientation/consciousness: patient oriented x3 Resp: Auscultation: clear to auscultation bilaterally Cardio: Rhythm: regular rhythm GI: GI Palp: Yes Soft to palpation and No Tenderness to palpation present (GI) Neuro: General: patient oriented x3
[2021-06-14 11:14] VITALS: BP 149/93; PULSE 89; RESP 20; TEMP 36; O2SAT 97
[2021-06-14] MEDS: LACTATED RINGERS 1,000 ML 150 ML IV CONT (11:18)
--- NOTE | 2021-06-14 12:18 | WPDANESEPPF ---
Anes - Initial Pre Proc Eval Procedure: Operation Date: 06/14/21 12:30 Proposed Procedures p Colonoscopy - Sid Mallory MD Date/Time: 06/14/21 12:18 Surgeon: Sid Mallory MD Pre Op Diagnosis: melena Patient Data Age: 70 Gender: M Height: 1.71 m Weight: 83.3 kg Last Vital Signs Temp 36.0 C L 06/14/21 11:14 Pulse 89 06/14/21 11:14 Resp 20 06/14/21 11:14 BP 149/93 H 06/14/21 11:14 Pulse Ox 97 06/14/21 11:14 Allergies Allergy/AdvReac Type Severity Reaction Status Date / Time piperacillin [From Zosyn] Allergy Intermediate Hives Verified 06/14/21 11:14 tazobactam [From Zosyn] Allergy Intermediate Hives Verified 06/14/21 11:14 hydrocodone Allergy Hives Verified 06/14/21 11:14 NKFA Allergy Mild unknown Uncoded 06/01/21 15:32 Home Medications Medication Instructions Recorded Confirmed Type aspirin 81 mg tablet,delayed 81 mg PO DAILY 01/13/20 06/01/21 History release atorvastatin 80 mg tablet 80 mg PO DAILY 01/13/20 06/01/21 History docusate sodium 100 mg capsule 100 mg PO BID 01/13/20 06/01/21 History ezetimibe 10 mg tablet 10 mg PO DAILY 01/13/20 06/01/21 History metoprolol tartrate 25 mg tablet 25 mg PO BID tablet 01/13/20 06/01/21 History multivitamin 1 tablet PO DAILY 01/13/20 06/01/21 History omega-3 fatty acids 1,000 mg 1,000 mg PO DAILY 01/13/20 06/01/21 History capsule acetaminophen [Mapap 650 mg PO Q6H PRN #14 tablet 03/02/20 06/01/21 Rx (acetaminophen)] diphenhydramine HCl 25 mg PO Q6H PRN #14 cap 03/02/20 06/01/21 Rx ibuprofen 400 mg PO Q6H PRN #14 tablet 03/02/20 06/01/21 Rx fluticasone propionate 50 See Rx Instructions .ROUTE 05/01/20 06/01/21 Rx mcg/actuation nasal .COMPLEX #48 ml spray,suspension Patient hx anesthesia problems: none Family hx anesthesia problems: none Results Review: All pre-operative results and documents have been reviewed as part of the pre-operative evaluation. [facility] Past Medical History Medical History Coronary artery disease Hyperlipidemia Hypertension Kidney stones Surgical History Surgical History History of coronary artery bypass graft x 3 (~06/2014) History of laparoscopic cholecystectomy 03/01/20 Laparoscopic Cholecystectomy with Intraoperative Cholangiogram History of left inguinal hernia repair Status post excision of lipoma From the side of the neck. Family History Family History Mother Acute myocardial infarction Cancer Alzheimer disease Father Diabetes mellitus Skin cancer Social History Social History Social History: Surrogate decision maker: Leeann Hong, . Code status: Full code. Smoking status: Never smoker Second hand tobacco smoke exposure: No Alcohol intake: never Substance use: never Substance use type: does not use Living arrangements: with family Additional living arrangements comments: Resides with family members in [place]. Gender identity (if verbalized by the patient): Male Spiritual care concerns: No Anes - Eval Final PreProcedure Day of Procedure 06/14/21 12:18 Patient weight: overweight Heart: regular rate and rhythm Lungs: clear to auscultation Airway: Mallampati scale class II Neurological: alert and oriented Last oral intake: >/= 8 hours ASA classification: III Emergent: no Anesthetic plan: proceed Anesthesia type and monitoring: general GIVS and standard monitoring Results Review: All pre-operative results and documents have been reviewed as part of the pre-operative evaluation. Informed Consent: The patient's anesthetic plan and its attendant risks and benefits were discussed with the patient/family/POA. Questions were solicited and answers provided to the satisfaction of the patient/family/POA.
[2021-06-14] MEDS: SIMETHICONE ORAL SUSPENSION 20 MG/0.3 ML 30 ML BOTTLE 0.6 ML IRRIGATION (12:40)
[2021-06-14 12:50] VITALS: BP 101/72; PULSE 61; RESP 22; O2SAT 95
[2021-06-14 13:00] VITALS: BP 114/72; PULSE 56; RESP 16; O2SAT 97
[2021-06-14 13:10] VITALS: BP 116/75; PULSE 57; RESP 19; O2SAT 97
== END 2021-06-14 13:25 | disposition home or self-care (01) ==
PROVIDERS: PCP Internal Medicine; Visit Provider Internal Medicine Gastroenterology
PROC: 0DJD8ZZ Inspection of Lower Intestinal Tract, Via Natural or Artificial Opening Endoscopic (ICD-10-PCS; CPT 45378; principal; 2021-06-14 12:30)
DX: R19.7 Diarrhea, unspecified (principal); K92.1 Melena; K57.30 Diverticulosis of large intestine without perforation or abscess without bleeding; I10 Essential (primary) hypertension; E78.5 Hyperlipidemia, unspecified; I25.10 Atherosclerotic heart disease of native coronary artery without angina pectoris; Z95.1 Presence of aortocoronary bypass graft
CPT/HCPCS: 45380; 88305; J2704; J7120

== ENCOUNTER 2022-03-05 17:50 | Emergency (ER) | payer MEDICARE, SELFPAY ==
--- NOTE | ~2022-03-05 | CT_ITS ---
EXAMINATION: CT abdomen pelvis wo con DATE: 03/05/2022 19:28 INDICATION: left flank/LLQ/CVA pain TECHNIQUE: Computed tomography (CT) of the abdomen and pelvis was performed without intravenous contr ast. Automated exposure control and iterative reconstruction technique were employed. The dose-length product was 515.42 mGy-cm. COMPARISON: 05/28/2021, 02/19/2020. FINDINGS: Lower thorax: Small hiatal hernia. Lingular scar. Minimal dependent atelectasis/scar. Senescent valdovinos es in the lungs. 5 mm left lower lobe pulmonary nodule, stable over 2 years, no recommendation for ad ditional follow-up. Liver: Left lobe hypodensity, too small to characterize but most likely represents a cyst. 8mm right liver lobe indeterminate lesion, additional smaller right lobe indeterminate density seen in the prio r study is not visualized without contrast. Biliary/Gallbladder: Gallbladder is absent. No bile duct dilation. Pancreas: No mass or duct dilation. Spleen: Normal. Adrenals:No mass. Kidneys: Bilateral perinephric stranding, greater on the left. Mild left caliectasis and pelviectasis . 6 mm left UVJ stone. Multiple bilateral renal cysts. Multiple nonobstructing left renal calculi are also present. GI tract: No small or large bowel dilation. Normal appendix. Diverticulosis without diverticulitis. Mesentery/Peritoneum: No ascites, mass, or free air. Retroperitoneum: No mass. Atherosclerotic abdominal aortic and/or arterial calcifications. Pelvis: Decompressed urinary bladder. Prostatic calcifications.. Soft Tissues: Small uncomplicated bilateral fat-containing inguinal hernias, larger on the right. Bones: No acute osseous finding. IMPRESSION: 1. 6 mm left UVJ stone causing mild obstructive uropathy. 2. Indeterminate right liver lobe subcentimeter lesions, likely benign, no further follow-up recommen ded unless the patient is at high risk in which case consider follow-up without and with contrast MR of the abdomen. Reviewed, dictated and finalized at location K. RVISOR WATERPROOFING IMPRESSION: 1. 6 mm left UVJ stone causing mild obstructive uropathy. 2. Indeterminate right liver lobe subcentimeter lesions, likely benign, no furt her follow-up recommended unless the patient is at high risk in which case cons ider follow-up without and with contrast MR of the abdomen.
[2022-03-05 18:00] VITALS: BP 170/89; PULSE 61; RESP 16; TEMP 36.3; O2SAT 96
[2022-03-05] MEDS: ONDANSETRON INJ 4 MG/2 ML VIAL IV PUSH (19:01)
[2022-03-05] MEDS: MORPHINE SULFATE (*CRX) 2 MG/ML INJ IV PUSH ×2 (19:03→19:45)
[2022-03-05] MEDS: PANTOPRAZOLE SODIUM IV 40 MG VIAL IV PUSH (19:03)
[2022-03-05] MEDS: SODIUM CHLORIDE 0.9% IV 500 ML 999 ML IV CONT (19:03)
[2022-03-05 19:11] LABS: Basophils Absolute Auto 0.05 K/mm3 (0.00-0.10); Basophils Percent Auto 0.8 % (0.0-1.0); Eosinophils Absolute Auto 0.07 K/mm3 (0.02-0.50); Eosinophils Percent Auto 1.2 % (1.0-6.0); Hematocrit 38.3 % (37.0-46.0); Hemoglobin 12.4 g/dL (12.4-15.3); Immature Granulocyte Absolute 0.04 K/mm3 (0.00-0.00); Immature Granulocyte Percent A 0.7 % (0.0-0.0); Lymphocytes Absolute Auto 1.03 K/mm3 (1.10-4.50); Lymphocytes Percent Auto 17.1 % (18.0-42.0); Mean Corpuscular HGB Conc 32.4 g/dL (32.0-36.0); Mean Corpuscular Volume 89.7 fL (78.0-102.0); Mean Platelet Volume 10.1 fl (8.7-11.0); Monocytes Percent Auto 6.6 % (2.0-11.0); Neutrophils Absolute Auto 4.4 K/mm3 (1.7-7.2); Neutrophils Percent Auto 73.6 % (50.0-70.0); Platelet Count Result 170 K/mm3 (150-420); Red Blood Count 4.27 M/mm3 (4.70-6.10); Red Cell Distribution Width 13.5 % (11.6-14.4)
[2022-03-05 19:13] LABS: Add Urine Microscopic? YES; Appearance Urine Slightly Cloudy (Clear); Bilirubin Urine Negative (Negative); Blood Urine 3+ (Negative); Color Urine Yellow (Yellow); Glucose Urine UA Negative (Negative); Ketones Urine 1+ (Negative); Leukocyte Esterase Ur Negative (Negative); Nitrate Urine Negative (Negative); Protein Urine Trace (Negative)
[2022-03-05 19:20] LABS: Amphetamine Screen Urine Negative (Negative); Barbiturate Screen Urine Negative (Negative); Benzodiazepines Screen Urine Negative (Negative); Cannabinoid Screen Urine Negative (Negative); Cocaine Screen Urine Negative (Negative); Methadone Screen Urine Negative (Negative); Opiate Screen Urine Negative (Negative); Phencyclidine Screen Urine Negative (Negative)
[2022-03-05 19:23] LABS: Amorphous Sediment Urine Few; Bacteria Urine 1+ /hpf; RBC Urine >75 /hpf (0-2); Squamous Epithelial Cell Urine Rare /hpf (Few); WBC Urine 0-3 /hpf (0-3)
[2022-03-05 19:26] LABS: Alanine Aminotransferase 47 U/L (16-63); Albumin Level 3.5 g/dL (3.4-5.0); Alkaline Phosphatase 104 U/L (46-116); Anion Gap 8 mmol/L (8-16); Aspartate Amino Transferase 27 U/L (15-37); Bilirubin,Total 0.5 mg/dL (0.00-1.00); Blood Urea Nitrogen 18 mg/dL (7-18); Calcium 8.9 mg/dL (8.5-10.1); Carbon Dioxide 29 mmol/L (21-32); Chloride 109 mmol/L (98-108); Estimated CRCL calculation 41 ml/min; Estimated Glomerular Filt Rate 49; Glucose 134 mg/dL (70-99); Lipase 91 U/L (73-393); Osmolality Calculated 305 mOsm/kg (285-295); Potassium 3.9 mmol/L (3.5-5.1); Sodium 146 mmol/L (136-145); Total Protein 6.8 g/dL (6.4-8.2)
[2022-03-05 19:27] LABS: Ethanol < 3 mg/dL (0-6)
--- NOTE | 2022-03-05 19:28 | PC.NURSE ---
electronic communications technician reports that pt had an episode of emesis while down at Ct. Reported to ERP.
[2022-03-05 19:29] LABS: Lactic Acid Reflex 1.2 mmol/L (0.4-2.0)
[2022-03-05 19:30] VITALS: BP 159/79; PULSE 64; RESP 18; O2SAT 94
[2022-03-05 20:00] VITALS: BP 168/86; PULSE 60; RESP 20; O2SAT 94
[2022-03-05 20:30] VITALS: O2SAT 99
--- NOTE | 2022-03-05 20:37 | ED.ABDPAIN ---
HPI - Abdominal Pain General Chief Complaint: Urogenital-Male Stated Complaint: abdomin and back pain, vomiting, blood in urine Time Seen by Provider: 03/05/22 17:53 Source: patient and RN notes reviewed Mode of arrival: ambulatory Limitations: no limitations History of Present Illness MD elicited complaint: flank pain and other (also vomiting and mild hematuria) Pertinent past history: kidney stones Onset (ago): hour(s) (4) Pain Consistency: constant and colicky Location: other (flank pain) Severity: moderate Pain scale (0-10): 6 Radiation: back Migration to: no migration Exacerbating factors: nothing Relieving factors: nothing Associated symptoms: nausea, vomiting and hematuria Related Data Home Medications Medication Instructions Recorded Confirmed aspirin 81 mg tablet,delayed 81 mg PO DAILY 01/13/20 03/05/22 release (Adult Low Dose Aspirin) atorvastatin 80 mg tablet 80 mg PO DAILY 01/13/20 03/05/22 docusate sodium 100 mg capsule 100 mg PO BID 01/13/20 03/05/22 ezetimibe 10 mg tablet (Zetia) 10 mg PO DAILY 01/13/20 03/05/22 metoprolol tartrate 25 mg tablet 25 mg PO BID 01/13/20 03/05/22 multivitamin 1 tablet PO DAILY 01/13/20 03/05/22 omega-3 fatty acids 1,000 mg 1,000 mg PO DAILY 01/13/20 03/05/22 capsule (Fish Oil Concentrate) Allergies Allergy/AdvReac Type Severity Reaction Status Date / Time piperacillin [From Zosyn] Allergy Intermediate Hives Verified 03/05/22 18:21 tazobactam [From Zosyn] Allergy Intermediate Hives Verified 03/05/22 18:21 hydrocodone Allergy Hives Verified 03/05/22 18:21 NKFA Allergy Mild unknown Uncoded 03/05/22 18:21 Review of Systems Review of Systems: All systems reviewed & are unremarkable except as noted in HPI and below Constitutional: Constitutional: Reports no additional constitutional complaints Eyes: Eyes: Reports no additional eye complaints ENT: Reports system reviewed and no additional complaints, except as documented Cardiovascular: Cardiovascular: Reports no additional cardiovascular complaints Respiratory: Respiratory: Reports no additional respiratory complaints Gastrointestinal: Gastrointestinal: Reports no additional gastrointestinal complaints Musculoskeletal: Musculoskeletal: Reports no additional musculoskeletal complaints Integumentary/Breasts: Skin/Breast: Reports system reviewed and no additional complaints, except as docu Neurologic: Reports system reviewed and no additional complaints, except as documented Psychiatric: Psychiatric: Reports no additional psychiatric complaints Endocrine: Endocrine: Reports no additional endocrine complaints Hematologic/Lymphatic: Hematologic/Lymphatic: Reports no additional hematologic/lymphatic complaints Allergic/Immunologic: Allergic/Immunologic: Reports no additional allergic/immunologic complaints [facility] Past Medical History Medical History Coronary artery disease Hyperlipidemia Hypertension Kidney stones Surgical History Surgical History History of coronary artery bypass graft x 3 (~06/2014) History of laparoscopic cholecystectomy 03/01/20 Laparoscopic Cholecystectomy with Intraoperative Cholangiogram History of left inguinal hernia repair Status post excision of lipoma From the side of the neck. Family History Family History Mother Acute myocardial infarction Cancer Alzheimer disease Father Diabetes mellitus Skin cancer Social History Social History Social History: Surrogate decision maker: Leeann Hong, . Code status: Full code. Smoking status: Never smoker Second hand tobacco smoke exposure: No Alcohol intake: never Substance use: never Substance use type: does not use Additional living arrangements comments: Resides with family members in [facility]
[2022-03-05 20:45] VITALS: BP 156/76; PULSE 68; RESP 20; O2SAT 100
[2022-03-05 21:20] VITALS: BP 155/81; PULSE 67; RESP 18; O2SAT 96
[2022-03-05] MEDS: traMADol HCL (*CRX) 50 MG TABLET PO (21:32)
== END 2022-03-05 21:30 | disposition home or self-care (01) ==
PROVIDERS: Emergency Provider Emergency Medicine; PCP Internal Medicine
DX: N39.0 Urinary tract infection, site not specified (principal); N20.1 Calculus of ureter; I25.10 Atherosclerotic heart disease of native coronary artery without angina pectoris; E78.5 Hyperlipidemia, unspecified; I10 Essential (primary) hypertension; Z79.82 Long term (current) use of aspirin; Z95.1 Presence of aortocoronary bypass graft; Z79.899 Other long term (current) drug therapy
CPT/HCPCS: 36415; 74176; 80053; 80307; 81001; 83605; 83690; 85025; 96361; 96365; 96375; 96376; 99284; A9270; C9113; J0696; J2270; J2405; J7040

== ENCOUNTER 2022-03-26 10:19 | Outpatient (CLI) | payer MEDICARE, SELFPAY ==
--- NOTE | ~2022-03-26 | CT_ITS ---
EXAMINATION: CT abdomen pelvis wo con DATE: 03/26/2022 10:43 INDICATION: Left ureteral stone follow-up, persistent left flank pain and hematuria TECHNIQUE: Computed tomography (CT) of the abdomen and pelvis was performed without intravenous contr ast. The dose-length product (DLP) was 277.70 mGy-cm. Automated exposure control and iterative recons truction technique were employed. COMPARISON: 03/05/2022 FINDINGS: Minimal dependent atelectasis is present in the lung bases. The heart size is normal. The g allbladder is surgically absent. The liver, pancreas, and adrenal glands are normal. A punctate calci fication of the otherwise normal spleen likely reflects old granulomatous disease. A 4 mm stone of th e left ureter has migrated from the UPJ to the distal ureter. There is moderate left hydroureteroneph rosis with interval worsening. Nonobstructing stones of the left kidney measure up to 3 mm. Cysts of the kidneys measure up to 2.6 cm on the right. Colonic diverticulosis is present without evidence of diverticulitis. No pathologically enlarged abdominal or pelvic lymph nodes are identified. There is n o free intraperitoneal gas or evidence of bowel obstruction. There is a right inguinal hernia contain ing fat. There is moderate lower lumbar spondylosis. IMPRESSION: 1. 4 mm stone of the left ureter migrated from the UPJ to the distal ureter. Persistent moderate left hydroureteronephrosis. Reviewed, dictated and finalized at location L. PULLER IMPRESSION: 1. 4 mm stone of the left ureter migrated from the UPJ to the distal ureter. Pe rsistent moderate left hydroureteronephrosis.
--- NOTE | ~2022-03-26 | XR_ITS ---
EXAMINATION: XR abdomen/kub 1V INDICATION: Persistent left flank pain and hematuria, recent left ureteral stone TECHNIQUE: Supine view of the abdomen is obtained. COMPARISON: CT from today FINDINGS: There is a 4 mm calcification of the left pelvis corresponding to the distal ureteral stone seen on CT. There is a 3 mm stone of the left kidney. A phlebolith is noted in the right pelvis. The bowel gas pattern is normal. IMPRESSION: 1. 4 mm stone of the distal left ureter. Reviewed, dictated and finalized at location L. ONNEL RECORDS CLERK
== END 2022-03-26 10:20 | disposition home or self-care (01) ==
LOC: CHSIMG 10:21
PROVIDERS: PCP Internal Medicine; Visit Provider Nurse Practitioner
DX: N20.1 Calculus of ureter (principal); N13.30 Unspecified hydronephrosis
CPT/HCPCS: 74018; 74176

== ENCOUNTER 2022-04-04 03:32 | Day surgery (SDC) | payer MEDICARE, SELFPAY ==
[2022-04-02 09:25] VITALS: BMI 29.0
--- NOTE | 2022-04-02 09:36 | PC.NURSE ---
Report to the Outpatient Waiting Room, entrance under the green pavilion located off [facility], at time _1130_ on date _04/04/22_. Planned Procedure Time: _1330_. Time changes happen often and if your time is changed the preop area will call you the afternoon before. - You and your visitor will be asked to self-screen and do not enter if you have any COVID symptoms. - Only one visitor is requested with a max of two and NO children visitors are allowed at this time. - The patient visitor may be requested to leave or wait in car when not with patient due to distancing restrictions. - A mask is optional within the hospital. Patients may have clear liquids (water, carbonated beverages, clear teas, apple juice) until 3 hours prior to surgery (1030 AM) with a maximum of 20 ounces. - No food from midnight until time of surgery - Infants may have breast milk until 4 hours before surgery, infant formula 6 hours prior to surgery. - Children will be allowed to drink immediately following surgery. If applicable, please bring a bottle or sippy cup to assist with drinking. Juice, water, soda, and popsicles are readily available. For infants on formula, please bring formula the day of surgery. Pacifiers are allowed. Take the following medications with a SIP of water the morning of surgery: _METOPROLOL, DIAZEPAM IF NEEDED_ Medications to discontinue per physician _ASPIRIN PER DR. SINGH'S INSTRUCTIONS, PT STATES ALREADY STOPPED FISH OIL A WEEK, AGO. MULTIVITAMIN AND PROBIOTIC OF TODAY_ Date to take last dose Please no make-up, nail lao, hairspray, perfume, deodorant, or body powder the day of surgery. No jewelry (including any body piercings) or valuables the day of surgery, leave them at home. Please take a shower or bath the night before, or the morning of, surgery with an antibacterial soap. Wear comfortable, loose fitting clothing. Children are encouraged to wear pajamas. - Jewelry must be removed prior to entering the operating room. Rings and piercings that are not removed may be cut off. - The hospital will not accept responsibility for valuables. - Please leave all valuables, including medications, at home the day of surgery. If you are going home after surgery, a licensed mobile lounge driver must drive you home. - NO public transportation without another adult if you receive anesthesia. - We recommend that an adult stay with you for 24 hours following discharge. - We also recommend that you do not drive, make important decision, drink alcoholic beverages, or take any drugs that were not prescribed by your health care provider for at least 24 hours after your discharge time. For Pediatric surgeries, we recommend two adults accompany the child home. Follow any additional instructions given to you from your surgeon. If you or anyone in your household have experienced Covid symptoms in the past week, please notify your surgeon or the nurse liaison at the phone number below for possible testing. Telephone instructions given to _PT_and asked if any additional questions and then verbalized understanding. Patient advised to call surgeon office or pre surgery nurse liaison [phone] if any additional questions.
--- NOTE | 2022-04-03 13:03 | WPDANESEPPF ---
Anes - Initial Pre Proc Eval Procedure: Operation Date: 04/04/22 13:30 Proposed Procedures p Cystoscopy, Left Ureteroscopy, Holmium Laser Lithotripsy, Left Ureteral Stent Placement - Reuben Smith MD Date/Time: 04/03/22 13:03 Surgeon: Reuben Smith MD Pre Op Diagnosis: left ureteral stone Patient Data Age: 71 Gender: M Height: 1.7 m Weight: 84.09 kg Allergies Allergy/AdvReac Type Severity Reaction Status Date / Time piperacillin [From Zosyn] Allergy Intermediate Hives Verified 04/04/22 12:20 tazobactam [From Zosyn] Allergy Intermediate Hives Verified 04/04/22 12:20 hydrocodone Allergy Hives Verified 04/04/22 12:20 Home Medications Medication Instructions Recorded Confirmed Type aspirin 81 mg tablet,delayed 81 mg PO DAILY 01/13/20 04/04/22 History release (Adult Low Dose Aspirin) atorvastatin 80 mg tablet 80 mg PO DAILY 01/13/20 04/04/22 History ezetimibe 10 mg tablet (Zetia) 10 mg PO DAILY 01/13/20 04/04/22 History metoprolol tartrate 25 mg tablet 25 mg PO BID 01/13/20 04/04/22 History multivitamin 1 tablet PO DAILY 01/13/20 04/04/22 History omega-3 fatty acids 1,000 mg 1,000 mg PO DAILY 01/13/20 04/04/22 History capsule (Fish Oil Concentrate) tamsulosin 0.4 mg capsule (Flomax) 0.4 mg PO DAILY #20 caps 03/05/22 04/04/22 Rx Probiotic 2 tab-cap QAM 04/02/22 04/04/22 History diazepam 5 mg tablet See Rx Instructions .Route .COMPLEX 04/02/22 04/04/22 History Patient hx anesthesia problems: none Family hx anesthesia problems: none Results Review: All pre-operative results and documents have been reviewed as part of the pre-operative evaluation. [facility] Past Medical History Medical History Coronary artery disease Hyperlipidemia Hypertension Kidney stones Surgical History Surgical History History of coronary artery bypass graft x 3 (~06/2014) History of laparoscopic cholecystectomy 03/01/20 Laparoscopic Cholecystectomy with Intraoperative Cholangiogram History of left inguinal hernia repair Status post excision of lipoma From the side of the neck. Family History Family History Mother Acute myocardial infarction Cancer Alzheimer disease Father Diabetes mellitus Skin cancer Social History Social History Social History: Surrogate decision maker: Leeann Hong, . Code status: Full code. Smoking status: Never smoker Second hand tobacco smoke exposure: No Alcohol intake: never Substance use: never Substance use type: does not use Living arrangements: with family Additional living arrangements comments: Resides with family members in [place]. Gender identity (if verbalized by the patient): Male Spiritual care concerns: No Anes - Eval Final PreProcedure Day of Procedure 04/03/22 13:03 Patient weight: overweight Heart: regular rate and rhythm Lungs: clear to auscultation Airway: Mallampati scale class II Neurological: alert and oriented Last oral intake: >/= 8 hours ASA classification: III Emergent: no Anesthetic plan: proceed Anesthesia type and monitoring: general LMA and standard monitoring Results Review: All pre-operative results and documents have been reviewed as part of the pre-operative evaluation. Informed Consent: The patient's anesthetic plan and its attendant risks and benefits were discussed with the patient/family/POA. Questions were solicited and answers provided to the satisfaction of the patient/family/POA.
[2022-04-04] VITALS (11 sets, daily range): BP systolic 127–163; BP diastolic 57–79; PULSE 47–67; RESP 12–20; TEMP 36.1–36.7; O2SAT 92–100
--- NOTE | ~2022-04-04 | XR_ITS ---
EXAMINATION: XR stent kub - surgery DATE: 04/04/2022 13:18 INDICATION: Left internal ureteral stent placement TECHNIQUE: Fluoroscopic images from a left internal ureteral stent placement are submitted for review . 26 seconds of fluoroscopy time. 5 fluoroscopic images. FINDINGS: There is a left double-J internal ureteral stent projecting in expected position, with proximal Austin loop at the level of the renal pelvis and distal loop in the pelvis within the bladder lumen. IMPRESSION: 1. Left internal ureteral stent placement. Please refer to real-time procedural findings for detail s. Reviewed, dictated and finalized at location A. BUILDER IMPRESSION: 1. Left internal ureteral stent placement. Please refer to real-time procedur al findings for details.
--- NOTE | 2022-04-04 06:31 | WPDHPUPDATE1 ---
History and Physical Update Update Date/Time: 04/04/22 06:31 History and Physical has been reviewed, including an updated exam of the patient. There are NO changes in the patient's condition. Risks, benefits, and alternatives have been discussed and questions answered. Patient agrees to proceed with procedure.
[2022-04-04] MEDS: LACTATED RINGERS 1,000 ML 30 ML IV CONT (12:09)
--- NOTE | 2022-04-04 13:37 | W.PM.PROC2 ---
Procedure Note - Detailed Date of Procedure 04/04/22 Pre-op Diagnosis Left ureteral stone Post-op Diagnosis Same Procedure Performed Cystoscopy, left ureteroscopy with laser lithotripsy, stone extraction and left ureteral stent placement Surgeon Reuben Smith MD Anesthesia General Description of Procedure The patient was brought to the operative suite where he is prepped and draped in a routine sterile fashion while in the dorsal lithotomy position after the uneventful induction of a general LMA anesthetic. A 19F rigid cystoscope was placed in the bladder. There are no urethral strictures. His prostatic urethra measures, approximately, 2.0cm with small median lobe enlargement. The bladder mucosa was endoscopically normal without hyperemia or neoplasm. There was a single, orthotopic ureteral orifice bilaterally. A 0.035 glidewire was advanced into the left renal pelvis under fluoroscopy. The distal ureter was dilated with an 8F/10F ureteral dilator. Ureteroscopy was undertaken with a short tapered semi-rigid ureteroscope. patient had significant ureteral edema in this was a very jagged your regularly shaped stone. In light of that I opted to perform laser lithotripsy.During ureteroscopy I fractured the stone into smaller pieces using a 273 micron Holmium laser fiber with the Holmium laser. I was able to then extract the stone pieces using a 1.9F Escape, disposable stone basket. Due to the extent of this manipulation I did place a 4.8F double-J ureteral stent. The proximal coil of the stent was confirmed to be in the renal pelvis and the distal coil in the bladder. The patient's bladder was emptied and he was taken to the recovery room having tolerated this procedure well. Drains Yes Packing No Pathology None sent Complications No immediate complications Condition Stable Disposition PACU
[2022-04-04] MEDS: oxyCODONE HCL (*CRX) 5 MG TAB IR PO (15:17)
== END 2022-04-04 16:15 | disposition home or self-care (01) ==
PROVIDERS: PCP Internal Medicine; Visit Provider Urology
PROC: (CPT 52352; principal; 2022-04-04 13:30)
DX: N20.1 Calculus of ureter (principal); I10 Essential (primary) hypertension; E78.5 Hyperlipidemia, unspecified; I25.10 Atherosclerotic heart disease of native coronary artery without angina pectoris; Z95.1 Presence of aortocoronary bypass graft; Z79.82 Long term (current) use of aspirin
CPT/HCPCS: 52356; 82365; 88300; A9270; C1769; C2617; J0690; J1100; J2405; J2704; J3010; J7120

== ENCOUNTER 2022-05-01 12:23 | Outpatient (CLI) | payer MEDICARE, SELFPAY ==
--- NOTE | ~2022-05-01 | PE_ITS ---
EXAMINATION: PET_PETPSMAST_PT DATE: 05/01/2022 15:17 INDICATION: Prostate cancer TECHNIQUE: 10.587 mCi of pipflufolastat F-18 (18-F-DCFPyL) was administered i.v. Low dose computed t omography (CT) images were acquired from the base of the brain to the base of the brain to the proxim al thighs for attenuation correction and anatomic localization. Positron emission tomography (PET) im ages were acquired in the same distribution beginning 122 minutes after injection. Images including f used PET/CT images were reconstructed in axial, coronal, and sagittal planes. Automated exposure cont rol technique was employed. The dose-length product was 723.20mGy-cm. COMPARISON: CT abdomen and pelvis dated 03/26/2022 FINDINGS: Head/neck: Typical pattern of symmetric physiologic increased activity in the lacrimal, parotid and submandibula r glands as well as along the mucosa of the nasal cavities, nasopharynx, oropharynx and hypopharynx. No pathologically enlarged cervical lymphadenopathy or suspicious foci of increased uptake in the vis ualized head or neck. Chest: Mild the dependent atelectasis in the bilateral lungs. Additional mild this could atelectasis at the lingula. Small calcified left lower lobe nodule and calcified left hilar and mediastinal lymph nodes consistent with old granulomatous disease. No suspicious pulmonary nodules or pleural effusion. Heart size normal. Atherosclerotic coronary artery calcifications. Postoperative change of prior median st ernotomy and coronary artery bypass grafting. No pericardial effusion. Thoracic aorta is normal calib er. Subtle sclerotic lesion with mild increased uptake with maximal SUV of 3.2 at the base of the acr omion suspicious for metastatic disease. Abdomen/pelvis/proximal thighs: Physiologic renal accumulation and excretion of activity in the kidneys, bladder and along portions o f ureters. Normal degree and slightly heterogenous pattern of increased uptake throughout the liver a nd spleen without radiologic correlate or dominant PSMA avid lesion. Cholecystectomy clips in the gal lbladder fossa. The pancreas and bilateral adrenal glands are normal. Moderate uptake scattered throu ghout the bowels with typical duodenal and proximal jejunal predominance and without radiologic corre late, also likely physiologic. Minimal is approximately 1 cm nodular focus of intense increased uptak e with maximal SUV of 62.9 at the left peripheral zone of the prostate. There are additional regions of less intense increased uptake in the prostate, including the maximal extent tendons tiny focus of increased uptake with maximal SUV of 6.1 at the right anteroinferior aspect of the prostate. No patho logically enlarged or PSMA avid lymphadenopathy in the abdomen or pelvis. Subtle activity at the leve l of the blood pool associated with a lesion in the L2 vertebral body with CT appearance most consist ent with a hemangioma and which is without interval change since 02/19/2020 there are a few small den sely sclerotic bone islands at the bilateral hips which are without associated PSMA activity. Small focus of intense soft tissue uptake in the superficial right forearm likely represent ing extravasation at the site of injection. IMPRESSION: 1. Multiple foci of increased PSMA may activity in the prostate, the most intense in the left periphe ral zone consistent with provided history of prostate cancer 2. Small focus of increased PSA may activity such with a subtle sclerotic lesion at the base of the l eft acromion and consistent with osseous metastatic disease. No other lesions suspicious for metastas is identified. Reviewed, dictated and finalized at location A. NT SERVICES ANALYST IMPRESSION: 1. Multiple foci of increased PSMA may activity in the prostate, the most inten se in th
== END 2022-05-01 12:24 | disposition home or self-care (01) ==
PROVIDERS: PCP Internal Medicine; Visit Provider Urology
DX: C61 Malignant neoplasm of prostate (principal); M89.9 Disorder of bone, unspecified
CPT/HCPCS: 78815; A9595

== ENCOUNTER 2022-06-27 09:58 | Outpatient (CLI) | payer MEDICARE, SELFPAY ==
--- NOTE | ~2022-06-27 | XR_ITS ---
Clinical Indication: Prostate cancer, preoperative evaluation PA and lateral views of the chest: Comparison: None Findings: The lungs are clear, without evidence of focal consolidation or pleural effusion. Cardiome diastinal silhouette is within normal limits, status post CABG. Bones and soft tissues are unremarkab le. Impression: Clear lungs. Reviewed, dictated and finalized at location . Impression: Clear lungs.
--- NOTE | 2022-06-27 11:13 | ECG_ITS ---
Measurements Intervals [place] Rate: 42 P: 55 [place]: 188 QRS: 4 QRSD: 106 T: 68 QT: 446 QTc: 375 Interpretive Statements SINUS BRADYCARDIA INCOMPLETE RIGHT BUNDLE BRANCH BLOCK CONSIDER INFERIOR INFARCT, AGE INDETERMINATE BORDERLINE ST ABNORMALITY- HIGH LATERAL LEADS BASELINE ARTIFACT- I, II, AVR, AVL ABNORMAL ECG COMPARED TO ECG 02/28/2020 09:09:55 SINUS BRADYCARDIA NOW PRESENT Electronically Signed On 06-27-2022 11:57:48 CDT by Prince Andrews D.O.
[2022-06-27 13:03] LABS: Basophils Percent Auto 0.8 % (0.2-1.2); Eosinophils Absolute Auto 0.1 K/mm3 (0-0.3); Eosinophils Percent Auto 1.9 % (0-4.4); Hematocrit 44.5 % (42.0-52.0); Hemoglobin 14.5 g/dL (14.0-18.0); Immature Granulocyte Absolute 0.02 K/mm3 (0.00-0.031); Immature Granulocyte Percent A 0.4 % (0-0.5); Lymphocytes Absolute Auto 1.82 K/mm3 (0.9-3.2); Lymphocytes Percent Auto 34.7 % (18.3-44.2); Mean Corpuscular HGB Conc 32.6 g/dl (32-36); Mean Corpuscular Hemoglobin 29.7 pg (26-34); Mean Corpuscular Volume 91.2 fl (80-100); Mean Platelet Volume 10.4 fl (7.4-10.4); Monocytes Absolute Auto 0.5 K/mm3 (0.1-0.6); Monocytes Percent Auto 9.5 % (2.6-8.5); Neutrophils Absolute Auto 2.8 K/mm3 (1.3-6.7); Neutrophils Percent Auto 52.7 % (45.5-73.1); Platelet Count Result 199 k/mm3 (150-375); Red Blood Count 4.88 M/mm3 (4.6-6.20); Red Cell Distribution Width 13.3 % (11.5-14.5); White Blood Count 5.3 K/mm3 (4.5-10.0)
[2022-06-27 13:04] LABS: Appearance Urine Clear (Clear); Bilirubin Urine Negative (Negative); Blood Urine Negative (Negative); Color Urine Yellow (Yellow); Glucose Urine UA Negative (Negative); Ketones Urine Negative (Negative); Leukocyte Esterase Ur Negative LEU/UL (Negative); Nitrate Urine Negative (Negative); Protein Urine Negative (Negative); Specific Grav Ur 1.024 (1.001-1.035); pH Urine 5.5 (5.0-9.0)
[2022-06-27 13:10] LABS: Add Urine Microscopic? NO
[2022-06-27 13:15] LABS: Prothrombin Time 13.2 Seconds (11.1-14.7)
[2022-06-27 13:16] LABS: Alanine Aminotransferase 44 U/L (6-50); Albumin Level 4.6 g/dL (3.5-5.1); Alkaline Phosphatase 95 U/L (38-126); Anion Gap 5 mmol/L (8-16); Aspartate Amino Transferase 42 U/L (17-59); Bilirubin,Total 1.1 mg/dL (0.2-1.3); Blood Urea Nitrogen 18 mg/dL (9-20); Calcium 9.3 mg/dL (8.4-10.2); Carbon Dioxide 30 mmol/L (22-30); Chloride 106 mmol/L (98-107); Estimated Glomerular Filt Rate > 60; Glucose 84 mg/dL (65-110); Partial Thromboplastin Time 30.8 SECONDS (22.3-36.8); Potassium 3.8 mmol/L (3.4-5.0); Sodium 141 mmol/L (137-145)
== END 2022-06-27 09:59 | disposition home or self-care (01) ==
LOC: ANHSURGERY 10:05
PROVIDERS: PCP Internal Medicine; Visit Provider Urology
DX: C61 Malignant neoplasm of prostate (principal); Z01.818 Encounter for other preprocedural examination; I45.10 Unspecified right bundle-branch block
CPT/HCPCS: 36415; 71046; 80053; 81003; 85025; 85610; 85730; 86850; 86900; 86901; 93005

== ENCOUNTER 2022-07-04 00:15 | Day surgery (SDC) | payer MEDICARE, SELFPAY ==
--- NOTE | 2022-06-25 08:49 | PM.IMHP ---
H&P: HPI History of Present Illness Date/Time: 06/25/22 08:49 Chief Complaint: Prostate cancer Narrative: 71-year-old gentleman recently referred with a PSA of 4.4. Prostate MRI demonstrated 1 region suspicious for carcinoma. Uro navigated biopsy revealed adenocarcinoma Dev 3+3=6, 3+5=8 and 4+5=9 in the NAVJOT cores. Prostate volume was calculated, at the time of biopsy at 39.45 g. Staging PSMA scan showed uptake in the prostate. There was also a subtle area of uptake in the left a chromium. After a thorough discussion of therapeutic options we elected to proceed with potentially curative surgery. We did discuss the possibility that need for adjuvant therapy. He is aware the risk of this procedure including, but not limited to, adverse cardiopulmonary events, rectal injury, urinary incontinence and erectile dysfunction. [facility], [facility] Past Medical History Medical History Coronary artery disease Hyperlipidemia Hypertension Kidney stones Surgical History Surgical History History of coronary artery bypass graft x 3 (~06/2014) History of laparoscopic cholecystectomy 03/01/20 Laparoscopic Cholecystectomy with Intraoperative Cholangiogram History of left inguinal hernia repair Status post excision of lipoma From the side of the neck. Family History Family History Mother Acute myocardial infarction Cancer Alzheimer disease Father Diabetes mellitus Skin cancer Social History Social History Social History: Surrogate decision maker: Leeann Hong, . Code status: Full code. Smoking status: Never smoker Second hand tobacco smoke exposure: No Alcohol intake: never Substance use: never Substance use type: does not use Living arrangements: with family Additional living arrangements comments: Resides with family members in [place]. Gender identity (if verbalized by the patient): Male Spiritual care concerns: No Meds Home Medications and Allergies Home Medications Medication Instructions Recorded Confirmed Type aspirin 81 mg tablet,delayed 81 mg PO DAILY 01/13/20 04/04/22 History release (Adult Low Dose Aspirin) atorvastatin 80 mg tablet 80 mg PO DAILY 01/13/20 04/04/22 History ezetimibe 10 mg tablet (Zetia) 10 mg PO DAILY 01/13/20 04/04/22 History metoprolol tartrate 25 mg tablet 25 mg PO BID 01/13/20 04/04/22 History multivitamin 1 tablet PO DAILY 01/13/20 04/04/22 History omega-3 fatty acids 1,000 mg 1,000 mg PO DAILY 01/13/20 04/04/22 History capsule (Fish Oil Concentrate) tamsulosin 0.4 mg capsule (Flomax) 0.4 mg PO DAILY #20 caps 03/05/22 04/04/22 Rx Probiotic 2 tab-cap QAM 04/02/22 04/04/22 History diazepam 5 mg tablet See Rx Instructions .Route .COMPLEX 04/02/22 04/04/22 History ketorolac 10 mg tablet 10 mg PO Q6H 5 days #20 tabs 04/04/22 Rx sulfamethoxazole 800 1 tablet PO Q12H #6 tabs 04/04/22 Rx mg-trimethoprim 160 mg tablet Allergies Allergy/AdvReac Type Severity Reaction Status Date / Time piperacillin [From Zosyn] Allergy Intermediate Hives Verified 04/04/22 12:20 tazobactam [From Zosyn] Allergy Intermediate Hives Verified 04/04/22 12:20 hydrocodone Allergy Hives Verified 04/04/22 12:20 Exam Const: General: no acute distress Resp: Effort & Inspection: normal respiratory effort GI: Inspection: non-distended GI Palp: No abdominal tenderness and No Guarding due to palpation present (GI) Auscultation: normal bowel sounds Assessment and Plan Assessment and plan (1) Prostate cancer: Code(s): C61 - Malignant neoplasm of prostate Status: Acute Assessment and Plan: Robotic assisted laparoscopic radical prostatectomy with bilateral pelvic lymphadenectomy
--- NOTE | 2022-06-27 10:35 | PC.NURSE ---
Report to the Outpatient Waiting Room, entrance under the green pavilion located off [facility], at time ___0600____ on date __07/04/22 . Planned Procedure Time: __30 . Time changes happen often and if your time is changed the preop area will call you the afternoon before. - You and your visitor will be asked to self-screen and do not enter if you have any COVID symptoms. - Only one visitor is requested with a max of two and NO children visitors are allowed at this time. - The patient visitor may be requested to leave or wait in car when not with patient due to distancing restrictions. - A mask is optional within the hospital at this time. Patients may have clear liquids (water, carbonated beverages, clear teas, apple juice) until 3 hours prior to surgery with a maximum of 20 ounces. - No food from midnight until time of surgery - Infants may have breast milk until 4 hours before surgery, formula 6 hours prior to surgery. - Children will be allowed to drink immediately following surgery. If applicable, please bring a bottle or sippy cup to assist with drinking. Juice, water, soda, and popsicles are readily available. For infants on formula, please bring formula the day of surgery. Pacifiers are allowed. Take the following medications with a SIP of water the morning of surgery: METOPROLOL DO NOT STOP ANY OF YOUR OTHER PRESCRIPTION MEDICATIONS PRIOR TO SURGERY ?EXCEPT THE FOLLOWING Medications to discontinue per physician ___ASPIRIN PER DR SINGH. ALL VITAMINS/SUPPLEMENTS 3 DAYS PRE OP . LAST DOSE 06/30/[address] SINGH Please no make-up, nail telugu, hairspray, perfume, deodorant, or body powder the day of surgery. No jewelry (including any body piercings) or valuables the day of surgery, leave them at home. Please take a shower or bath the night before, or the morning of, surgery with an antibacterial soap. Wear comfortable, loose fitting clothing. Children are encouraged to wear pajamas. - Jewelry must be removed prior to entering the operating room. Rings and piercings that are not removed may be cut off. - The hospital will not accept responsibility for valuables. - Please leave all valuables, including medications, at home the day of surgery. If you are going home after surgery, a licensed otr refrigerated cdl truck driver must drive you home. - NO public transportation without another adult if you receive anesthesia. - We recommend that an adult stay with you for 24 hours following discharge. - We also recommend that you do not drive, make important decision, drink alcoholic beverages, or take any drugs that were not prescribed by your health care provider for at least 24 hours after your discharge time. Follow any additional instructions given to you from your surgeon. If you or anyone in your household have experienced Covid symptoms in the past week, please notify your surgeon or the nurse liaison at the phone number below for possible testing. VERBAL AND WRITTEN instructions given to __PATIENT and asked if any additional questions and then verbalized understanding. Patient advised to call surgeon office or pre surgery nurse liaison [phone] if any additional questions.
[2022-06-27 10:55] VITALS: BP 148/92; PULSE 57; RESP 18; TEMP 36.6; O2SAT 99; BMI 29.5
[2022-07-04] VITALS (14 sets, daily range): BP systolic 116–160; BP diastolic 60–81; PULSE 52–80; RESP 12–18; TEMP 35.9–37.1; O2SAT 92–100
--- NOTE | 2022-07-04 06:27 | WPDHPUPDATE1 ---
History and Physical Update Update Date/Time: 07/04/22 06:27 History and Physical has been reviewed, including an updated exam of the patient. There are NO changes in the patient's condition. Risks, benefits, and alternatives have been discussed and questions answered. Patient agrees to proceed with procedure.
[2022-07-04] MEDS: LACTATED RINGERS 1,000 ML 30 ML IV CONT ×2 (06:40→11:22)
--- NOTE | 2022-07-04 07:18 | WPDANESEPPF ---
Anes - Initial Pre Proc Eval Procedure: Operation Date: 07/04/22 07:30 Proposed Procedures p Robotic Assisted Laparoscopic Prostatectomy With Bilateral Pelvic Lymph Node Dissection - Reuben Smith MD Date/Time: 07/04/22 07:18 Surgeon: Reuben Smith MD Pre Op Diagnosis: PROSTATE CANCER Patient Data Age: 71 Gender: M Height: 1.7 m Weight: 83.05 kg Last Vital Signs Temp 36.0 C L 07/04/22 06:16 Pulse 59 L 07/04/22 06:16 Resp 18 07/04/22 06:16 BP 133/80 07/04/22 06:16 Pulse Ox 99 07/04/22 06:16 O2 Del Method Room Air 07/04/22 06:16 Allergies Allergy/AdvReac Type Severity Reaction Status Date / Time piperacillin [From Zosyn] Allergy Intermediate Hives Verified 07/04/22 06:35 tazobactam [From Zosyn] Allergy Intermediate Hives Verified 07/04/22 06:35 hydrocodone Allergy Hives Verified 07/04/22 06:35 Home Medications Medication Instructions Recorded Confirmed Type aspirin 81 mg tablet,delayed 81 mg PO DAILY 01/13/20 07/04/22 History release (Adult Low Dose Aspirin) atorvastatin 80 mg tablet 80 mg PO DAILY 01/13/20 07/04/22 History ezetimibe 10 mg tablet (Zetia) 10 mg PO DAILY 01/13/20 07/04/22 History metoprolol tartrate 25 mg tablet 25 mg PO BID 01/13/20 07/04/22 History multivitamin 1 tablet PO DAILY 01/13/20 07/04/22 History omega-3 fatty acids 1,000 mg 1,000 mg PO DAILY 01/13/20 07/04/22 History capsule (Fish Oil Concentrate) Probiotic 2 tab-cap PO QAM 04/02/22 07/04/22 History fluticasone propionate 50 1 spray intranasal DAILY 06/27/22 07/04/22 History mcg/actuation nasal spray,suspension Patient hx anesthesia problems: none Family hx anesthesia problems: other (unknown) Results Review: All pre-operative results and documents have been reviewed as part of the pre-operative evaluation. [facility] Past Medical History Medical History Coronary artery disease Hyperlipidemia Hypertension Kidney stones Surgical History Surgical History History of coronary artery bypass graft x 3 (~06/2014) History of laparoscopic cholecystectomy 03/01/20 Laparoscopic Cholecystectomy with Intraoperative Cholangiogram History of left inguinal hernia repair Status post excision of lipoma From the side of the neck. Family History Family History Mother Acute myocardial infarction Cancer Alzheimer disease Father Diabetes mellitus Skin cancer Social History Social History Social History: Surrogate decision maker: Leeann Hong, . Code status: Full code. Smoking status: Never smoker Second hand tobacco smoke exposure: No Alcohol intake: never Substance use: never Substance use type: does not use Living arrangements: with family Additional living arrangements comments: Resides with family members in [place]. Gender identity (if verbalized by the patient): Male Spiritual care concerns: No Anes - Eval Final PreProcedure Day of Procedure 07/04/22 07:18 Patient weight: overweight Heart: regular rate and rhythm Lungs: clear to auscultation Airway: Mallampati scale class II Neurological: alert and oriented Last oral intake: >/= 8 hours ASA classification: III Emergent: no Anesthetic plan: proceed Anesthesia type and monitoring: general ETT and standard monitoring Results Review: All pre-operative results and documents have been reviewed as part of the pre-operative evaluation. Informed Consent: The patient's anesthetic plan and its attendant risks and benefits were discussed with the patient/family/POA. Questions were solicited and answers provided to the satisfaction of the patient/family/POA.
[2022-07-04] MEDS: ceFAZolin 2 GM/D5W 50 ML 2 GM/50 ML BAG IVPB (07:33)
--- NOTE | 2022-07-04 11:01 | W.PM.PROC2 ---
Procedure Note - Detailed Date of Procedure 07/04/22 Pre-op Diagnosis PROSTATE CANCER Post-op Diagnosis Same Procedure Performed Robotic assisted radical prostatectomy with bilateral pelvic lymphadenectomy Surgeon Reuben Smith MD Dowel Setting Machine Operator SATISH Meza Anesthesia General Description of Procedure The patient was brought to the operative suite, where he was prepped and draped in routine sterile fashion while in a dorsal lithotomy, deep Trendelenburg position. A supraumbilical 10 mm trocar was placed after insufflation of the abdomen with a Veress needle. Three robotic ports were then placed under direct vision. Two of these were placed in the right lower quadrant - 10 cm and 20 cm lateral to, and in line with, the umbilicus. A third robotic trocar was placed 10 cm to the left of the umbilicus, and 20 cm to the left of the umbilicus, a 12 mm standard laparoscopic trocar was placed to be used as an election assistant port. Lastly, a 5 mm trocar was placed in the left upper quadrant midway between the umbilicus and the left robotic trocar. Attention was then turned to the prostatectomy. I opted for a posterior approach in this patient. An incision was made in the parietal peritoneum along the posterior bladder/posterior prostate about 2 cm above the reflection of the peritoneum over the anterior rectum. The seminal vesicles and vas deferens were immediately identified. Dissection is undertaken in a fashion so as to avoid electrocautery as much as possible, particularly near the tips of the seminal vesicles. Dissection was also carried out in the midline so as to avoid any encounters with the ureters. The vas deferens and the seminal vesicles were dissected in their entirety to the base of the prostate. The plane anterior to Denoviller's fascia, anterior to the rectum and posterior to the prostate was then developed. I then dropped the bladder by incising the anterior parietal peritoneum just lateral to the median umbilical ligaments bilaterally. The bladder was dropped from the anterior abdominal and pelvic wall. The endopelvic fascia was identified and incised bilaterally, allowing for dissection of the posterior-lateral aspect of the prostate. The puboprostatic ligaments were transected near their origin from the posterior pubic ramus. This posterior lateral dissection of the prostate is also undertaken in a fashion so as to avoid electrocautery as much as possible. The dorsal vein of the penis is then secured with an 0 -Vicryl ligature. Attention is then turned to the bladder neck. The anterior bladder neck is incised at the vesico-prostatic junction. The previously placed urethral catheter was drawn through the urethrotomy. A very small bladder neck was maintained throughout the remainder of this dissection. The posterior bladder neck was incised in a fashion so as to avoid any injury to the ureteral orifices. Again, the small aperture of the bladder neck was maintained. The previously dissected vas deferens and the seminal vesicles were brought through the posterior bladder neck incision. The lateral prostatic pedicles were then carefully dissected from the lateral aspect of the prostate bilaterally. The prostatic pedicles were secured with Weck clips and transected. The neurovascular bundles were carefully dissected from the posterior-lateral aspect of the prostate. The dorsal vein of the penis was incised with electrocautery. Using cold scissors, the urethra was incised. After withdrawing the previously placed urethral catheter, the posterior urethra was sharply incised, as was the rectalurethralis muscle. Attention was then turned to an extended bilateral pelvic lymphadenectomy. The limits of this dissection were similar bilaterally. Specifically, the limits were the bifurcation of the common iliac vein proximally, the inguinal ligament distally, the obturator nerve posteriorly and the anterior aspect to the external iliac artery lateral
[2022-07-04] MEDS: fentaNYL CITRATE INJ (*CRX) 100 MCG/2 ML VIAL 25 MCG IV PUSH ×2 (11:51→13:06)
[2022-07-04] MEDS: LACTATED RINGERS 1,000 ML 125 ML IV CONT (15:34)
[2022-07-04] MEDS: ATORVASTATIN 40 MG TABLET 80 MG PO (15:35)
[2022-07-04] MEDS: EZETIMIBE 10 MG TABLET PO (15:35)
[2022-07-04] MEDS: METOPROLOL TARTRATE 25 MG TABLET PO (17:34)
[2022-07-05] MEDS: LACTATED RINGERS 1,000 ML 125 ML IV CONT (02:06)
[2022-07-05 02:50] VITALS: BP 109/50; PULSE 55; RESP 14; TEMP 36.1; O2SAT 95
[2022-07-05 06:01] LABS: Anion Gap 4 mmol/L (8-16); Blood Urea Nitrogen 13 mg/dL (9-20); Calcium 8.5 mg/dL (8.4-10.2); Carbon Dioxide 30 mmol/L (22-30); Chloride 106 mmol/L (98-107); Estimated CRCL calculation 63 ml/min; Estimated Glomerular Filt Rate > 60; Glucose 115 mg/dL (65-110); Potassium 3.8 mmol/L (3.4-5.0); Sodium 140 mmol/L (137-145)
[2022-07-05 06:04] LABS: Hematocrit 37.3 % (42.0-52.0); Hemoglobin 12.1 g/dL (14.0-18.0)
--- NOTE | 2022-07-05 06:54 | WPDUROPN2 ---
Progress Note: A&P Assessment and Plan (1) Prostate cancer: Code(s): C61 - Malignant neoplasm of prostate Status: Acute Assessment and Plan: Doing well POD #1 Increase diet/ambulation this morning. Anticipate discharge this early this afternoon. Subjective Subjective Date/Time Seen: 07/05/22 06:54 Comfortable, no complaints Review of Systems Cardiovascular: Cardiovascular: Denies chest pain, Denies lightheadedness, Denies palpitations and Denies dyspnea Respiratory: Respiratory: Denies dyspnea Gastrointestinal: Gastrointestinal: Denies diarrhea, Denies nausea and Denies vomiting Genitourinary: Genitourinary: Denies hematuria and Denies dysuria Endocrine: Endocrine: Denies palpitations Exam Const: General: no acute distress Resp: Effort & Inspection: normal respiratory effort GI: Inspection: non-distended GI Palp: No abdominal tenderness and No Guarding due to palpation present (GI) Auscultation: normal bowel sounds Other: incisions clean and dry Urinary Catheter: Urinary Catheter: patent and draining and urine clear Objective Data Vital Signs Vital Signs: Vital Signs - 24 hr 07/04/22 11:22 07/04/22 11:40 07/04/22 11:55 Temperature 97.1 F L Pulse Rate 60 59 L 52 L Respiratory Rate 12 16 16 Blood Pressure 139/72 156/70 H 147/81 H Pulse Oximetry 97 98 100 Oxygen Delivery Simple Face Mask Simple Face Mask Simple Face Mask Oxygen Flow Rate 8 8 8 07/04/22 12:10 07/04/22 12:25 07/04/22 12:40 Temperature Pulse Rate 58 L 60 56 L Respiratory Rate 16 15 14 Blood Pressure 140/73 126/71 130/69 Pulse Oximetry 98 98 98 Oxygen Delivery Room Air Room Air Room Air Oxygen Flow Rate 07/04/22 12:55 07/04/22 13:10 07/04/22 13:30 Temperature 97.8 F 97.8 F Pulse Rate 57 L 59 L 75 Respiratory Rate 15 12 12 Blood Pressure 144/69 H 131/72 152/75 H Pulse Oximetry 92 97 98 Oxygen Delivery Room Air Nasal Cannula Oxygen Flow Rate 2 07/04/22 14:00 07/04/22 15:00 07/04/22 19:00 Temperature 96.6 F L 96.6 F L 98.7 F Pulse Rate 80 77 73 Respiratory Rate 13 13 14 Blood Pressure 160/71 H 154/72 H 136/69 Pulse Oximetry 98 98 95 Oxygen Delivery Oxygen Flow Rate 07/04/22 22:53 07/05/22 02:50 Temperature 98 F 96.9 F L Pulse Rate 67 55 L Respiratory Rate 14 14 Blood Pressure 116/60 109/50 L Pulse Oximetry 94 95 Oxygen Delivery Oxygen Flow Rate Intake/Output Intake/Output: Intake & Output 07/02/22 07/03/22 07/04/22 07/05/22 23:59 23:59 23:59 23:59 Intake Total 2390 100 Output Total 950 Balance 1440 100 Meds/Results Medications: Active Medications Generic Name Dose Route Start Last Admin Trade Name Freq PRN Reason Stop Dose Admin Atorvastatin Calcium 80 mg 07/05/22 09:00 Atorvastatin 40 Mg Tablet PO DAILY [facility] Ezetimibe 10 mg 07/05/22 09:00 Ezetimibe 10 Mg Tablet PO DAILY [facility] Fluticasone Propionate 1 spray 07/04/22 13:35 07/04/22 15:36 Fluticasone Propionate 0.05% Na Spr 16 Gm Btl (*Bkc) NASAL Not Given DAILY [facility] Hyoscyamine 0.125 mg 07/04/22 13:15 Hyoscyamine Sulfate 0.125 Mg Tablet SUBLINGUAL Q4H PRN Bladder Spasm Lactated Ringer's 1,000 mls @ 125 mls/hr 07/04/22 13:15 07/05/22 02:06 Lr - Lactated Ringers Iv IV CONT 125 mls/hr .Q8H GRAEME Administration Acetaminophen 1,000 mg in 100 mls @ 400 mls/hr 07/04/22 14:00 07/05/22 05:40 Ofirmev 1,000 Mg Ivpb IVPB 07/05/22 13:59 Infused Q6H [facility] Infusion Ketorolac Tromethamine 15 mg 07/04/22 13:15 Ketorolac 15 Mg/Ml Vial (*Bkc) IV PUSH 07/05/22 13:14 Q6H PRN Pain Rated 4-6 Levofloxacin 500 mg 07/05/22 09:00 Levofloxacin 500 Mg Tablet PO DAILY [facility] Metoprolol Tartrate 25 mg 07/04/22 17:00 07/04/22 17:34 Metoprolol Tartrate 25 Mg Tablet PO 25 mg BID [facility] Administration Naloxone HCl 0.1 mg 07/04/22 13:15 Naloxone Hcl 0.4 Mg/Ml Vial IV PUSH Q2M PRN Opiate Re
[2022-07-05 07:00] VITALS: BP 121/60; PULSE 62; RESP 16; TEMP 36.2; O2SAT 97
--- NOTE | 2022-07-05 07:11 | WPDANESPN ---
Anes - Prog Note Post-Op Date/Time: 07/05/22 07:11 Cardiovascular status: normal Respiratory status: normal Airway patency: baseline Mental status: baseline Post-Op hydration status: normal Vital Signs: Last Vital Signs Temp 36.1 C L 07/05/22 02:50 Pulse 55 L 07/05/22 02:50 Resp 14 07/05/22 02:50 BP 109/50 L 07/05/22 02:50 Pulse Ox 95 07/05/22 02:50 O2 Del Method Nasal Cannula 07/04/22 13:10 O2 Flow Rate 2 07/04/22 13:10 Pain Score (VAS): 2 I/O: Intake & Output 07/04/22 07/04/22 07/05/22 15:59 23:59 07:59 Intake Total 530 1860 100 Output Total 100 850 Balance 430 1010 100 Laboratory Tests 07/05/22 05:25 07/05/22 05:25 07/05/22 07/05/22 05:25 05:25 Hgb 12.1 L Hct 37.3 L Sodium 140 Potassium 3.8 Chloride 106 Carbon Dioxide 30 Anion Gap 4 L BUN 13 D Creatinine 0.90 Estim Creat Clear Calc 63 Estimated GFR > 60 Glucose 115 H Calcium 8.5 Post-procedural complaints: none Patient Feedback: Patient satisfied with anesthetic care.
[2022-07-05] MEDS: FLUTICASONE PROPIONATE 0.05% NA SPR 16 GM BTL (*BKC) 1 SPRAY NASAL (08:52)
[2022-07-05] MEDS: levoFLOXacin 500 MG TABLET PO (08:54)
[2022-07-05] MEDS: EZETIMIBE 10 MG TABLET PO (08:54)
[2022-07-05] MEDS: METOPROLOL TARTRATE 25 MG TABLET PO (08:54)
[2022-07-05] MEDS: ATORVASTATIN 40 MG TABLET 80 MG PO (08:54)
[2022-07-05 11:00] VITALS: BP 128/77; PULSE 56; RESP 16; TEMP 35.8; O2SAT 98
--- NOTE | 2022-07-05 13:43 | PM.DS ---
DS: Admitting Diagnosis Discharge Date 07/05/2022 Admitting Diagnosis Prostate cancer DS: Summary Hospital Course Hospital Course: This patient was admitted on the morning of his planned robotic prostatectomy. This procedure was uneventful, as was his postoperative course. By the evening of the procedure he was sitting at the bedside in tolerating a liquid diet. The following morning he was ambulating freely and tolerating regular food. His catheter drainage remained essentially clear throughout. His postoperative hemoglobin and serum creatinine were unremarkable. At the time of discharge he has been instructed in appropriate care for his Coronado catheter with both a leg bag and bedside bag. He will be discharged with plans to follow-up in 1 week with a cystogram. Time Spent with Patient Time attestation: Total time spent providing and/or coordinating discharge services: Exam Const: General: no acute distress Resp: Effort & Inspection: normal respiratory effort GI: Inspection: non-distended GI Palp: No abdominal tenderness and No Guarding due to palpation present (GI) Auscultation: normal bowel sounds DS: Data Data Completed and Pending Pending studies at discharge: Pending at discharge 07/04/22 10:28 Surgical [PTH] Routine Labs on day of discharge: Labs from last 24 hours 07/05/22 07/05/22 05:25 05:25 Hgb 12.1 L Hct 37.3 L Sodium 140 Potassium 3.8 Chloride 106 Carbon Dioxide 30 Anion Gap 4 L BUN 13 D Creatinine 0.90 Estim Creat Clear Calc 63 Estimated GFR > 60 Glucose 115 H Calcium 8.5 Discharge Plan Discharge Patient Disposition: Home, Self-Care Discharge Instructions: 1) Coronado catheter -> leg bag / bedside bag at night. 2) No lifting/straining >15lbs. x3 weeks. 3) No driving x1-week. 4) Resume normal, pre-operative diet. 5) My office will contact regarding follow-up in 1-week with cystogram. Stand Alone Forms: General Discharge Instructions Discharge Orders: Discharge Order (Routine); Ordered 07/05/22 Ordered By: Reuben Smith Discharge Medications: New docusate sodium [Colace] 100 mg capsule 100 mg PO DAILY Qty: 30 0RF hyoscyamine sulfate 0.125 mg tablet 0.125 mg PO Q6H PRN (Reason: bladder spasms) Qty: 20 2RF ketorolac 10 mg tablet 10 mg PO Q6H 5 Days Qty: 20 0RF sulfamethoxazole-trimethoprim 800-160 mg tablet 1 tablet PO Q12H Qty: 10 0RF docusate sodium [Colace] 100 mg capsule 100 mg PO DAILY Qty: 30 0RF hyoscyamine sulfate 0.125 mg tablet 0.125 mg PO Q6H PRN (Reason: bladder spasms) Qty: 20 2RF ketorolac 10 mg tablet 10 mg PO Q6H 5 Days Qty: 20 0RF sulfamethoxazole-trimethoprim 800-160 mg tablet 1 tablet PO Q12H Qty: 10 0RF Continued metoprolol tartrate 25 mg tablet 25 mg PO BID Rx Instructions: PRESCRIBED BY DR. CAN atorvastatin 80 mg tablet 80 mg PO DAILY Rx Instructions: PRESCRIBED BY DR. CAN ezetimibe [Zetia] 10 mg tablet 10 mg PO DAILY Rx Instructions: PRESCRIBED BY DR. CAN multivitamin Tablet 1 tablet PO DAILY Probiotic 2 tab-cap PO QAM fluticasone propionate 50 mcg/actuation [place],Suspension 1 spray INTRANASAL DAILY Rx Instructions: administer into each nostril Held aspirin [Adult Low Dose Aspirin] 81 mg tablet,delayed release (DR/EC) 81 mg PO DAILY Hold Instructions: Resume on 07/08/22. Label Comments: TAKES AT HS omega-3 fatty acids [Fish Oil Concentrate] 1,000 mg capsule 1,000 mg PO DAILY Hold Instructions: Resume on 07/08/22. Label Comments: TAKES AT HS
== END 2022-07-05 16:25 | disposition home or self-care (01) ==
LOC: ANHSURGERY 06:02 → ANH3MEDSUR 13:18
PROVIDERS: PCP Internal Medicine; Visit Provider Urology
PROC: 0VT04ZZ Resection of Prostate, Percutaneous Endoscopic Approach (ICD-10-PCS; CPT 55867; principal; 2022-07-04 07:30)
DX: C61 Malignant neoplasm of prostate (principal); I10 Essential (primary) hypertension; E78.5 Hyperlipidemia, unspecified; I25.10 Atherosclerotic heart disease of native coronary artery without angina pectoris; Z95.1 Presence of aortocoronary bypass graft; Z79.82 Long term (current) use of aspirin
CPT/HCPCS: 55866; 38571; S2900; 36415; 71046; 80048; 80053; 81003; 85014; 85018; 85025; 85610; 85730; 86850; 86900; 86901; 88305; 88309; 88342; 93005; A9270; J0131; J0690; J1100; J2370; J2405; J2704; J2710; J3010; J7030; J7120; Q9968

== ENCOUNTER 2022-07-12 08:51 | Outpatient (CLI) | payer MEDICARE, SELFPAY ==
--- NOTE | ~2022-07-12 | XR_ITS ---
EXAMINATION: XR cystogram DATE: 07/12/2022 10:00 INDICATION: Prostate cancer. TECHNIQUE: Water-soluble contrast was gravity-infused through the patient's Coronado catheter. Multiple fluoroscopic images were obtained. Fluoroscopy exposure time was 0.3 minutes. The total number of melvin ges was 7. COMPARISON: None. FINDINGS: There is no extraluminal leakage of contrast. There is no ureteral reflux. IMPRESSION: 1. Normal cystogram. Reviewed, dictated and finalized at location A. IMPRESSION: 1. Normal cystogram.
== END 2022-07-12 08:52 | disposition home or self-care (01) ==
PROVIDERS: PCP Internal Medicine; Visit Provider Urology
DX: C61 Malignant neoplasm of prostate (principal)
CPT/HCPCS: 51600; 74430; Q9967

== ENCOUNTER 2023-04-04 14:19 | Emergency (ER) | payer MEDICARE, SELFPAY ==
--- NOTE | ~2023-04-04 | CT_ITS ---
EXAMINATION: CT abdomen pelvis wo con DATE: 04/04/2023 14:47 INDICATION: Left flank pain, radiating to left groin for 4 days. History of kidney stones. History of prostate cancer. TECHNIQUE: Computed tomography (CT) of the abdomen and pelvis was performed without intravenous contr ast. Automated exposure control and iterative reconstruction technique were employed. Exam dose: 244 .34 mGy-cm total exam DLP. COMPARISON: 03/26/2022 CT abdomen pelvis FINDINGS: There is mild discoid atelectasis and/or scarring at the lung bases. Status post sternotomy. Normal heart size. No pericardial or pleural effusion. Status post cholecystectomy. No hepatic, splenic, pancreatic or adrenal space-occupying mass lesion is detected. No bile duct or p ancreatic duct dilatation. More probable up to 2 cm right renal cysts, up to approximately 2.6 cm pos sible left renal cysts, not optimally evaluated on this limited noncontrast examination There is thickening of the anterior and posterior left pararenal and lateroconal fascia and left bernice nephric stranding, in addition to moderate left hydroureteronephrosis secondary to a distal left uret eral approximately 3 x 6 mm calculus. Pinpoint nonobstructing left renal calculus. The urinary bladder is relatively evacuated, not optimally evaluated. Prostate calcification. Fat-containing right inguinal hernia. Normal caliber of the abdominal aorta. No intraperitoneal or retroperitoneal or pelvic mass lesion or adenopathy or ascites. There are numerous diverticula of the sigmoid colon; no CT evidence of diverticulitis. No bowel obstr uction or intraperitoneal free air. No suspicious osteolytic or osteoblastic lesions are noted. IMPRESSION: Approximately 3 x 6 mm left ureteral calculus with moderate left hydroureteronephrosis Bilateral indeterminate renal lesions, most likely cysts Pinpoint nonobstructing left renal calculus Diverticulosis of the colon Reviewed, dictated and finalized at [facility]. Reviewed, dictated and finalized at location B. OL GUARD IMPRESSION: Approximately 3 x 6 mm left ureteral calculus with moderate left h ydroureteronephrosis Bilateral indeterminate renal lesions, most likely cysts Pinpoint nonobstructing left renal calculus Diverticulosis of the colon
[2023-04-04 14:21] VITALS: BP 134/98; PULSE 108; RESP 18; TEMP 36.8; O2SAT 98
[2023-04-04 14:22] VITALS: BP 134/98; PULSE 108; RESP 18; TEMP 36.8; O2SAT 98
--- NOTE | 2023-04-04 14:27 | ED.ABDPAIN ---
HPI - Abdominal Pain General Chief Complaint: Urogenital-Male Stated Complaint: abdominal pain Time Seen by Provider: 04/04/23 14:24 Source: patient Mode of arrival: ambulatory Limitations: no limitations History of Present Illness HPI narrative: patient is a 72-year-old male with left flank pain for the past 3 days. He has a history of kidney stones last year and had it removed surgically. He is here with similar pain on the left side. Associated nausea. MD elicited complaint: flank pain ( left side) Pertinent past history: kidney stones Onset (ago): day(s) ( 3 days) Pain Consistency: constant Location: L flank Severity: moderate Pain scale (0-10): 6 Quality: cramping, stabbing and sharp Radiation: LLQ and other ( left groin) Migration to: LLQ and L flank Exacerbating factors: movement Relieving factors: movement Associated symptoms: nausea Related Data Home Medications Medication Instructions Recorded Confirmed aspirin 81 mg tablet,delayed 81 mg PO DAILY 01/13/20 04/04/23 release (Adult Low Dose Aspirin) atorvastatin 80 mg tablet 80 mg PO DAILY 01/13/20 04/04/23 ezetimibe 10 mg tablet (Zetia) 10 mg PO DAILY 01/13/20 04/04/23 metoprolol tartrate 25 mg tablet 25 mg PO BID 01/13/20 04/04/23 multivitamin 1 tablet PO DAILY 01/13/20 04/04/23 omega-3 fatty acids 1,000 mg 1,000 mg PO DAILY 01/13/20 04/04/23 capsule (Fish Oil Concentrate) Probiotic 2 tab-cap PO QAM 04/02/22 04/04/23 fluticasone propionate 50 1 spray intranasal DAILY 06/27/22 04/04/23 mcg/actuation nasal spray,suspension Allergies Allergy/AdvReac Type Severity Reaction Status Date / Time piperacillin [From Zosyn] Allergy Intermediate Hives Verified 04/04/23 14:20 tazobactam [From Zosyn] Allergy Intermediate Hives Verified 04/04/23 14:20 hydrocodone Allergy Hives Verified 04/04/23 14:20 Review of Systems Review of Systems: All systems reviewed & are unremarkable except as noted in HPI and below Constitutional: Constitutional: Reports no additional constitutional complaints Eyes: Eyes: Reports no additional eye complaints ENT: Reports system reviewed and no additional complaints, except as documented Cardiovascular: Cardiovascular: Reports no additional cardiovascular complaints Respiratory: Respiratory: Reports no additional respiratory complaints Gastrointestinal: Gastrointestinal: Reports no additional gastrointestinal complaints Genitourinary: Genitourinary: Reports no additional male genitourinary complaints Musculoskeletal: Musculoskeletal: Reports no additional musculoskeletal complaints Integumentary/Breasts: Skin/Breast: Reports system reviewed and no additional complaints, except as docu Neurologic: Reports system reviewed and no additional complaints, except as documented Psychiatric: Psychiatric: Reports no additional psychiatric complaints Endocrine: Endocrine: Reports no additional endocrine complaints Hematologic/Lymphatic: Hematologic/Lymphatic: Reports no additional hematologic/lymphatic complaints Allergic/Immunologic: Allergic/Immunologic: Reports no additional allergic/immunologic complaints PMFSH Past Medical History Medical History Coronary artery disease Hyperlipidemia Hypertension Kidney stones Surgical History Surgical History History of coronary artery bypass graft x 3 (~06/2014) History of laparoscopic cholecystectomy 03/01/20 Laparoscopic Cholecystectomy with Intraoperative Cholangiogram History of left inguinal hernia repair Status post excision of lipoma From the side of the neck. Family History Family History Mother Acute myocardial infarction Cancer Alzheimer disease Father Diabetes mellitus Skin cancer Social History Social History Social History: Surrogate
[2023-04-04] MEDS: ONDANSETRON HCL ODT 4 MG TABLET PO (14:31)
[2023-04-04] MEDS: KETOROLAC (*BKC) 60 MG/2 ML VIAL IM (14:34)
[2023-04-04 15:08] LABS: Basophils Absolute Auto 0.02 K/mm3 (0.00-0.10); Basophils Percent Auto 0.2 % (0.0-1.0); Eosinophils Absolute Auto 0.01 K/mm3 (0.02-0.50); Eosinophils Percent Auto 0.1 % (1.0-6.0); Hematocrit 39.1 % (37.0-46.0); Hemoglobin 12.6 g/dL (12.4-15.3); Immature Granulocyte Percent A 0.9 % (0.0-0.0); Lymphocytes Absolute Auto 0.61 K/mm3 (1.10-4.50); Lymphocytes Percent Auto 5.6 % (18.0-42.0); Mean Corpuscular HGB Conc 32.2 g/dL (32.0-36.0); Mean Corpuscular Hemoglobin 28.4 pg (27.0-31.0); Mean Corpuscular Volume 88.1 fL (78.0-102.0); Mean Platelet Volume 10.7 fl (8.7-11.0); Monocytes Absolute Auto 0.86 K/mm3 (0.10-0.90); Monocytes Percent Auto 7.9 % (2.0-11.0); Neutrophils Absolute Auto 9.3 K/mm3 (1.7-7.2); Neutrophils Percent Auto 85.3 % (50.0-70.0); Platelet Count Result 167 K/mm3 (150-420); Red Blood Count 4.44 M/mm3 (4.70-6.10); Red Cell Distribution Width 13.2 % (11.6-14.4); White Blood Count 10.9 K/mm3 (4.8-10.8)
--- NOTE | 2023-04-04 15:17 | PC.NURSE ---
PT REPORTS NAUSEA AND PAIN HAVE IMPROVED. PT IS AWAITING RESULTS AT THIS TIME. WILL CONTINUE TO MONITOR. IS AT BEDSIDE.
[2023-04-04 15:21] LABS: Prothrombin Time 11.4 Seconds (9.50-12.10)
[2023-04-04 15:34] LABS: Alanine Aminotransferase 50 U/L (16-63); Albumin Level 2.8 g/dL (3.4-5.0); Alkaline Phosphatase 127 U/L (46-116); Anion Gap 9 mmol/L (8-16); Aspartate Amino Transferase 33 U/L (15-37); Bilirubin,Total 1.1 mg/dL (0.00-1.00); Blood Urea Nitrogen 20 mg/dL (7-18); Calcium 9.3 mg/dL (8.5-10.1); Carbon Dioxide 26 mmol/L (21-32); Chloride 101 mmol/L (98-108); Estimated CRCL calculation 38 ml/min; Estimated Glomerular Filt Rate 46; Glucose 131 mg/dL (70-99); Osmolality Calculated 286 mOsm/kg (285-295); Potassium 3.3 mmol/L (3.5-5.1); Sodium 136 mmol/L (136-145); Total Protein 7.5 g/dL (6.4-8.2)
--- NOTE | 2023-04-04 15:44 | PC.NURSE ---
PT IS TO FOLLOW UP WITH DR MCGOVERN NEXT WEEK OUT PT. PT IS TO HAVE IVF DUE TO LAB VALUES. WILL CONTINUE TO MONITOR.
[2023-04-04] MEDS: POTASSIUM CHLORIDE 20 MEQ ER TABLET PO (15:59)
[2023-04-04] MEDS: SODIUM CHLORIDE 0.9% IV 1,000 ML 999 ML IV CONT (15:59)
[2023-04-04 16:25] LABS: Appearance Urine Clear (Clear); Bilirubin Urine Negative (Negative); Blood Urine 2+ (Negative); Color Urine Yellow (Yellow); Glucose Urine UA Negative (Negative); Ketones Urine Negative (Negative); Leukocyte Esterase Ur 1+ LEU/UL (Negative); Nitrate Urine Negative (Negative); Protein Urine 2+ (Negative); Specific Grav Ur 1.015 (1.010-1.020)
[2023-04-04 16:32] LABS: Add Urine Microscopic? YES; Squamous Epithelial Cell Urine Few /hpf (Few)
[2023-04-04 16:33] LABS: Bacteria Urine Trace /hpf
[2023-04-04 16:55] VITALS: BP 102/77; PULSE 78; RESP 18; O2SAT 99
--- NOTE | 2023-04-06 12:43 | PC.NURSE ---
04/06/23 URINE CULTURE BACK TODAY AND DR GOFF CALLED IN NEW ANTIBIOTIC CALLED TO [facility] CIPRO 500MG BID FOR 7 DAYS AND TO STOP THE BACTRIM PT WAS NOTIFIED
== END 2023-04-04 16:55 | disposition home or self-care (01) ==
PROVIDERS: Emergency Provider Emergency Medicine; PCP Internal Medicine
DX: N20.1 Calculus of ureter (principal); N39.0 Urinary tract infection, site not specified; N17.9 Acute kidney failure, unspecified; E78.5 Hyperlipidemia, unspecified; I10 Essential (primary) hypertension; Z79.82 Long term (current) use of aspirin; Z79.899 Other long term (current) drug therapy
CPT/HCPCS: 36415; 74176; 80053; 81001; 85025; 85610; 85730; 87077; 87086; 87088; 87186; 96360; 96372; 99284; A9270; J1885; J7030

== ENCOUNTER 2023-04-10 02:20 | Day surgery (SDC) | payer MEDICARE, SELFPAY ==
--- NOTE | 2023-04-09 07:33 | PM.HPGS ---
History of Present Illness History of Present Illness Consent: Risks, benefits, and alternatives have been discussed and questions answered. Patient agrees to proceed with procedure. Chief complaint: left kidney stone Narrative: Willie Hong is a 72 year old male who was well known to me having undergone a robotic prostatectomy in June 2022. He recently presented to the emergency department in [place] with left flank pain. He had no fever chills or significant gross hematuria. Imaging demonstrated a partially obstructing 5-6 mm left distal ureteral calculus. After discussion of options he elects for left ureteroscopy with stone extraction. He is aware of the risks including, but not limited to, adverse cardiopulmonary events, need for additional procedures and need for stent placement. Review of Systems Review of Systems: All systems reviewed & are unremarkable except as noted in HPI and below PMFSH Past Medical History Medical History Coronary artery disease Hyperlipidemia Hypertension Kidney stones Surgical History Surgical History History of coronary artery bypass graft x 3 (~06/2014) History of laparoscopic cholecystectomy 03/01/20 Laparoscopic Cholecystectomy with Intraoperative Cholangiogram History of left inguinal hernia repair Status post excision of lipoma From the side of the neck. Family History Family History Mother Acute myocardial infarction Cancer Alzheimer disease Father Diabetes mellitus Skin cancer Social History Social History Social History: Surrogate decision maker: Leeann Hong, . Code status: Full code. Smoking status: Never smoker Second hand tobacco smoke exposure: No Alcohol intake: never Substance use: never Substance use type: does not use Living arrangements: with family Additional living arrangements comments: Resides with family members in [place]. Gender identity (if verbalized by the patient): Male Spiritual care concerns: No Meds Home Medications and Allergies Home Medications Medication Instructions Recorded Confirmed Type aspirin 81 mg tablet,delayed 81 mg PO DAILY 01/13/20 04/04/23 History release (Adult Low Dose Aspirin) atorvastatin 80 mg tablet 80 mg PO DAILY 01/13/20 04/04/23 History ezetimibe 10 mg tablet (Zetia) 10 mg PO DAILY 01/13/20 04/04/23 History metoprolol tartrate 25 mg tablet 25 mg PO BID 01/13/20 04/04/23 History multivitamin 1 tablet PO DAILY 01/13/20 04/04/23 History omega-3 fatty acids 1,000 mg 1,000 mg PO DAILY 01/13/20 04/04/23 History capsule (Fish Oil Concentrate) Probiotic 2 tab-cap PO QAM 04/02/22 04/04/23 History fluticasone propionate 50 1 spray intranasal DAILY 06/27/22 04/04/23 History mcg/actuation nasal spray,suspension docusate sodium 100 mg capsule 100 mg PO DAILY #30 caps 07/04/22 04/04/23 Rx (Colace) sulfamethoxazole 800 1 tablet PO BID 7 days #14 tabs 04/04/23 Rx mg-trimethoprim 160 mg tablet (Bactrim DS) tamsulosin 0.4 mg capsule (Flomax) 0.4 mg PO DAILY #30 caps 04/04/23 Rx tramadol 50 mg tablet 50 mg PO Q6H PRN pain #45 tabs 04/04/23 Rx Allergies Allergy/AdvReac Type Severity Reaction Status Date / Time piperacillin [From Zosyn] Allergy Intermediate Hives Verified 04/04/23 14:20 tazobactam [From Zosyn] Allergy Intermediate Hives Verified 04/04/23 14:20 hydrocodone Allergy Hives Verified 04/04/23 14:20 Exam Const: General: no acute distress Resp: Effort & Inspection: normal respiratory effort GI: Inspection: non-distended GI Palp: No abdominal tenderness and No Guarding due to palpation present (GI) Auscultation: normal bowel sounds Assessment and Plan Assessment and plan (1) Left ureteral stone: Code(s): N20.1 - Ca
--- NOTE | 2023-04-09 11:18 | PC.NURSE ---
Report to the Outpatient Waiting Room, entrance under the green pavilion located off [facility], at time _1130 on date _04/10/23 . Planned Procedure Time: __1330 . Time changes happen often and if your time is changed the preop area will call you the afternoon before. - You and your visitor will be asked to self-screen and do not enter if you have any COVID symptoms. - A mask is optional within the hospital at this time. Patients may have clear liquids (water, carbonated beverages, clear teas, apple juice) until 3 hours prior to surgery( 1030AM) with a maximum of 20 ounces. - No food from midnight until time of surgery - Infants may have breast milk until 4 hours before surgery, formula 6 hours prior to surgery. - Children will be allowed to drink immediately following surgery. If applicable, please bring a bottle or sippy cup to assist with drinking. Juice, water, soda, and popsicles are readily available. For infants on formula, please bring formula the day of surgery. Pacifiers are allowed. Take the following medications with a SIP of water the morning of surgery: ___METOPROLOL,BACTRIM,CIPRO DO NOT STOP ANY OF YOUR OTHER PRESCRIPTION MEDICATIONS PRIOR TO SURGERY ?EXCEPT THE FOLLOWING Medications to discontinue per physician PT STATES HOLD ASPIRIN AND ALL VITAMINS AND SUPPLEMENTS PER DR SINGH .LAST DOSE 04/07/23 Date to take last dose Please no make-up, nail [place]ank[place], hairspray, perfume, deodorant, or body powder the day of surgery. No jewelry (including any body piercings) or valuables the day of surgery, leave them at home. Please take a shower or bath the night before, or the morning of, surgery with an antibacterial soap. Wear comfortable, loose fitting clothing. Children are encouraged to wear pajamas. - Jewelry must be removed prior to entering the operating room. Rings and piercings that are not removed may be cut off. - The hospital will not accept responsibility for valuables. - Please leave all valuables, including medications, at home the day of surgery. If you are going home after surgery, a licensed compressed air pile driver operator must drive you home. - NO public transportation without another adult if you receive anesthesia. - We recommend that an adult stay with you for 24 hours following discharge. - We also recommend that you do not drive, make important decision, drink alcoholic beverages, or take any drugs that were not prescribed by your health care provider for at least 24 hours after your discharge time. For Pediatric surgeries, we recommend two adults accompany the child home. Follow any additional instructions given to you from your surgeon. If you or anyone in your household have experienced Covid symptoms in the past week, please notify your surgeon or the nurse liaison at the phone number below for possible testing. Telephone instructions given to _PATIENT AND NARESH and asked if any additional questions and then verbalized understanding. Patient advised to call surgeon office or pre surgery nurse liaison [phone] if any additional questions.
[2023-04-09 11:23] VITALS: BMI 29.0
[2023-04-10] VITALS (8 sets, daily range): BP systolic 99–122; BP diastolic 45–76; PULSE 45–79; RESP 12–16; TEMP 36.2–36.4; O2SAT 94–100
--- NOTE | ~2023-04-10 | XR_ITS ---
EXAMINATION: XR fluoroscopy no charge DATE: 04/10/2023 15:24 INDICATION: Left ureteral stone TECHNIQUE: 3 fluoroscopic images of the abdomen and pelvis were obtained during procedure performed rosa maria Smith. Radiologist was not present for the imaging or procedure. The amount of fluoroscopy janet e used during this procedure was 0.9 minutes. COMPARISON: CT dated 04/04/2023 FINDINGS: Feather Baler image demonstrates a large phlebolith in the right hemipelvis. The stone identified on CT the d istal left ureter is unable to be visualized on the plain radiographs. Final image demonstrates a wir e advanced into the distal right ureter. IMPRESSION: 1. Fluoroscopy utilized during reported left ureteral stone extraction. See procedure note for furthe r detail. Reviewed, dictated and finalized at location A. TRUCTION DIRECTOR IMPRESSION: 1. Fluoroscopy utilized during reported left ureteral stone extraction. See pro cedure note for further detail.
--- NOTE | 2023-04-10 06:26 | WPDHPUPDATE1 ---
History and Physical Update Update Date/Time: 04/10/23 06:26 History and Physical has been reviewed, including an updated exam of the patient. There are NO changes in the patient's condition. Risks, benefits, and alternatives have been discussed and questions answered. Patient agrees to proceed with procedure.
--- NOTE | 2023-04-10 11:18 | ECG_ITS ---
Measurements Intervals [place] Rate: 53 P: 54 [place]: 170 QRS: 4 QRSD: 109 T: 56 QT: 439 QTc: 415 Interpretive Statements SINUS BRADYCARDIA INCOMPLETE RIGHT BUNDLE BRANCH BLOCK MINIMAL Q WAVES- ANTEROLAT/HIGH LAT LEADS CONSIDER INFERIOR INFARCT, AGE INDETERMINATE ABNORMAL ECG COMPARED TO ECG 06/27/2022 12:25:15 HEART RATE HAS INCREASED Electronically Signed On 04-10-2023 12:52:30 [employer] OPERATOR by Prince Andrews D.O.
[2023-04-10] MEDS: LACTATED RINGERS 1,000 ML 30 ML IV CONT (12:05)
--- NOTE | 2023-04-10 13:06 | SUR.PREOP ---
1300- Updated pt on delay in Dr.Parres schwartz
--- NOTE | 2023-04-10 14:38 | WPDANESEPPF ---
Anes - Initial Pre Proc Eval Procedure: Operation Date: 04/10/23 13:30 Proposed Procedures p Cystoscopy, Left Ureteroscopy, Left Retrograde Pyelogram, Left Stone Extraction, Possible Left Stent Placement, Possible Holmium Laser - Reuben Smith MD Date/Time: 04/10/23 14:38 Surgeon: Reuben Smith MD Pre Op Diagnosis: left kidney stone Patient Data Age: 72 Gender: M Height: 1.71 m Weight: 80.8 kg Last Vital Signs Temp 36.4 C 04/10/23 12:58 Pulse 79 04/10/23 12:58 Resp 16 04/10/23 12:58 BP 112/76 04/10/23 12:58 Pulse Ox 95 04/10/23 12:58 O2 Del Method Room Air 04/10/23 12:58 Allergies Allergy/AdvReac Type Severity Reaction Status Date / Time piperacillin [From Zosyn] Allergy Intermediate Hives Verified 04/10/23 12:58 tazobactam [From Zosyn] Allergy Intermediate Hives Verified 04/10/23 12:58 hydrocodone Allergy Hives Verified 04/10/23 12:58 Home Medications Medication Instructions Recorded Confirmed Type aspirin 81 mg tablet,delayed 81 mg PO DAILY 01/13/20 04/10/23 History release (Adult Low Dose Aspirin) atorvastatin 80 mg tablet 80 mg PO DAILY 01/13/20 04/10/23 History ezetimibe 10 mg tablet (Zetia) 10 mg PO DAILY 01/13/20 04/10/23 History metoprolol tartrate 25 mg tablet 25 mg PO BID 01/13/20 04/10/23 History multivitamin 1 tablet PO DAILY 01/13/20 04/10/23 History omega-3 fatty acids 1,000 mg 1,000 mg PO DAILY 01/13/20 04/10/23 History capsule (Fish Oil Concentrate) Probiotic 2 tab-cap PO QAM 04/02/22 04/10/23 History fluticasone propionate 50 1 spray intranasal DAILY 06/27/22 04/09/23 History mcg/actuation nasal spray,suspension docusate sodium 100 mg capsule 100 mg PO DAILY #30 caps 07/04/22 04/10/23 Rx (Colace) tamsulosin 0.4 mg capsule (Flomax) 0.4 mg PO DAILY #30 caps 04/04/23 04/10/23 Rx tramadol 50 mg tablet 50 mg PO Q6H PRN pain #45 tabs 04/04/23 04/10/23 Rx ciprofloxacin HCl 500 mg tablet 500 mg PO BID KIDNEY INFECTION 04/09/23 04/10/23 History Patient hx anesthesia problems: none Family hx anesthesia problems: other Results Review: All pre-operative results and documents have been reviewed as part of the pre-operative evaluation. [facility] Past Medical History Medical History Coronary artery disease Hyperlipidemia Hypertension Kidney stones Surgical History Surgical History History of coronary artery bypass graft x 3 (~06/2014) History of laparoscopic cholecystectomy 03/01/20 Laparoscopic Cholecystectomy with Intraoperative Cholangiogram History of left inguinal hernia repair Status post excision of lipoma From the side of the neck. Family History Family History Mother Acute myocardial infarction Cancer Alzheimer disease Father Diabetes mellitus Skin cancer Social History Social History Social History: Surrogate decision maker: Leeann Hong, . Code status: Full code. Smoking status: Never smoker Second hand tobacco smoke exposure: No Alcohol intake: never Substance use: never Substance use type: does not use Living arrangements: with family Additional living arrangements comments: Resides with family members in [place]. Gender identity (if verbalized by the patient): Male Spiritual care concerns: No Anes - Eval Final PreProcedure Day of Procedure 04/10/23 14:38 Patient weight: overweight Heart: regular rate and rhythm Lungs: clear to auscultation Airway: Mallampati scale class III Neurological: alert and oriented Last oral intake: >/= 8 hours ASA classification: III Emergent: no Anesthetic plan: proceed Anesthesia type and monitoring: general LMA and standard monitoring Results Review: All pre-operative results and documents have been reviewed as part o
[2023-04-10] MEDS: ceFAZolin 2 GM/D5W 50 ML 2 GM/50 ML BAG IVPB (14:57)
[2023-04-10] MEDS: KETOROLAC 15 MG/ML VIAL (*BKC) IV PUSH (15:19)
--- NOTE | 2023-04-10 15:29 | W.PM.PROC2 ---
Procedure Note - Detailed Date of Procedure 04/10/23 Pre-op Diagnosis Left ureteral stone Post-op Diagnosis Same Procedure Performed Cystoscopy, left ureteroscopy with stone extraction Surgeon Reuben Smith MD Anesthesia General Description of Procedure The patient was brought to the operative suite where he is prepped and draped in a routine sterile fashion while in the dorsal lithotomy position after the uneventful induction of a general LMA anesthetic. A 19F rigid cystoscope was placed in the bladder. There are no urethral strictures. His prostate has been surgically removed. The bladder mucosa was endoscopically normal without hyperemia or neoplasm. There was a single, orthotopic ureteral orifice bilaterally. A 0.035 glidewire was advanced into the left renal pelvis under fluoroscopy. The distal ureter was dilated with an 8F/10F ureteral dilator. Ureteroscopy was undertaken with a short, tapered, semi-rigid ureteroscope and the stone was extracted with ease using a 1.9F Escape disposable stone basket. Due to the ease of this manipulation I opted not to place a ureteral stent. The patient's bladder was emptied and was taken to the recovery room having tolerated this procedure well. Complications No immediate complications Condition Stable Disposition PACU
[2023-04-10] MEDS: oxyCODONE HCL (*CRX) 5 MG TAB IR PO (16:51)
== END 2023-04-10 17:06 | disposition home or self-care (01) ==
PROVIDERS: PCP Internal Medicine; Visit Provider Urology
PROC: (CPT 52352; principal; 2023-04-10 13:30)
DX: N20.1 Calculus of ureter (principal); I25.10 Atherosclerotic heart disease of native coronary artery without angina pectoris; I10 Essential (primary) hypertension; E78.5 Hyperlipidemia, unspecified; Z95.1 Presence of aortocoronary bypass graft
CPT/HCPCS: 52352; 82365; 88300; 93005; 99199; A9270; C1769; J0690; J1100; J1885; J2250; J2405; J2704; J3010; J7120